=== PATIENT | female | born 2000 | race Caucasian/White ===

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

== ENCOUNTER 2022-02-14 14:54 | Outpatient (CLI) | payer OTHER, SELFPAY ==
--- NOTE | ~2022-02-14 | US_ITS ---
EXAMINATION: US OB /maternal detail DATE: 02/14/2022 16:00 INDICATION: of uncertain due to date or LMP TECHNIQUE: Real-time ultrasound of the pelvis was performed. COMPARISON: None. FINDINGS: There is a single living fetus in breech presentation. The placenta is posterior and 1.8 cm from the internal cervical os. The cervical length is 5.8 cm. heart rate is 144 beats per minute (bpm). cardiac activity and movement are noted. The amniotic fluid index is subjectively normal . The spine is incompletely evaluated. The following anatomy was identified as normal: 4 chamber heart 3 vessel cord cord insertion kidneys urinary bladder stomach diaphragm ventricles cisterna magna cerebellum The following biometric data were obtained: Biparietal diameter (BPD): 4.2 cm; head circumference (HC): 15.5 cm; abdominal circumference (AC): 14 .4 cm; femur length (FL): 3.0 cm. Estimated weight is 291 g +/- 43 g. As single measurements, these parameters are each equal to the following estimated gestational ages w ith ranges of +/- 2 standard deviations: BPD: 18 weeks 4 days +/- 1 weeks 5 days. HC: 18 weeks 3 days +/- 1 weeks 3 days. AC: 19 weeks 5 days +/- 2 weeks 0 days. FL: 19 weeks 3 days +/- 1 weeks 6 days. estimated gestational age based solely on measurements from this exam is 19 weeks 0 days +/- 1 weeks 2 days. IMPRESSION: 1. Single living fetus in breech presentation. 2. Estimated weight is 291 g +/- 43 g. 3. Estimated due date is 07/11/2019 based solely on measurements from this examination. 4. Low-lying placenta. Reviewed, dictated and finalized at location A. IMPRESSION: 1. Single living fetus in breech presentation. 2. Estimated weight is 291 g +/- 43 g. 3. Estimated due date is 07/11/2019 based solely on measurements from this exami nation. 4. Low-lying placenta.
== END 2022-02-14 14:55 | disposition home or self-care (01) ==
PROVIDERS: PCP Obstetrics & Gynecology; Visit Provider Obstetrics & Gynecology
DX: O44.42 Low lying placenta NOS or without hemorrhage, second trimester (principal); Z3A.19 19 weeks gestation of pregnancy
CPT/HCPCS: 76805

== ENCOUNTER 2022-04-18 12:48 | Outpatient (CLI) | payer MEDICAID, SELFPAY ==
--- NOTE | ~2022-04-18 | US_ITS ---
EXAMINATION: US OB follow up DATE: 04/18/2022 14:10 INDICATION: Low lying placenta. TECHNIQUE: Real-time ultrasound of the pelvis was performed. COMPARISON: Ultrasound 02/14/2022 FINDINGS: There is a single living fetus in vertex presentation. The placenta is posterior, 5.7 cm from the ce rvix. heart rate is 151 beats per minute (bpm). The visualized portions of the spine are normal. The four-chamber heart view is normal. The amniotic fluid volume is subjectively normal. The following biometric data were obtained: Biparietal diameter (BPD): 6.8 cm; head circumference (HC): 25.7 cm; abdominal circumference (AC): 24 .6 cm; femur length (FL): 5.3 cm. These measurements are concordant. Estimated weight is 1227 g +/- 184 g, which correlates with the 54th percentile when 07/11/22 is used as estimated date of delivery. As single measurements, these parameters are each equal to the following estimated gestational ages: BPD: 27 weeks 3 days. HC: 27 weeks 6 days. AC: 28 weeks 6 days. FL: 28 weeks 2 days. estimated gestational age based solely on measurements from this exam is 28 weeks 1 days +/- 2 weeks 0 days. IMPRESSION: 1. Single living fetus in vertex presentation. 2. Estimated weight is 1227 g +/- 184 g, which correlates with the 54th percentile when 3 is used as estimated date of delivery. 3. Normal placenta. Reviewed, dictated and finalized at location A. IMPRESSION: 1. Single living fetus in vertex presentation. 2. Estimated weight is 1227 g +/- 184 g, which correlates with the 54th percentile when 07/11/22 is used as estimated date of delivery. 3. Normal placenta.
== END 2022-04-18 12:49 | disposition home or self-care (01) ==
PROVIDERS: Visit Provider Obstetrics & Gynecology
DX: O44.42 Low lying placenta NOS or without hemorrhage, second trimester (principal); Z3A.28 28 weeks gestation of pregnancy
CPT/HCPCS: 76816

== ENCOUNTER 2022-08-10 18:06 | Emergency (ER) | payer OTHER, SELFPAY ==
[2022-08-10 18:10] VITALS: BP 122/68
[2022-08-10 18:14] VITALS: PULSE 82; RESP 14; TEMP 36.9; O2SAT 100
--- NOTE | 2022-08-10 18:24 | ED.LOWEXIN ---
HPI - Extremity Injury (Lower) General Chief Complaint: Extremity Injury, Lower Stated Complaint: right foot pain Time Seen by Provider: 08/10/22 18:24 History of Present Illness HPI Narrative: PATIENT PRESENTS WITH RIGHT LOWER LEG AND CALF PAIN FOR THE PAST FEW MONTHS. PATIENT STATES THE PAIN HAS GOTTEN WORSE OVER THE LAST FEW DAYS AND HAS INCREASED PAIN TO CALF WITH AMBULATION AND WEIGHT-BEARING. PATIENT ALSO REPORTS NUMBNESS AND TINGLING TO RIGHT LOWER FOOT PATIENT DENIES ANY INJURY BUT DID HAVE A NORMAL VAGINAL 1 MONTH AGO. Related Data Home Medications Medication Instructions Recorded Confirmed No Home Medications 08/10/22 08/10/22 Allergies Allergy/AdvReac Type Severity Reaction Status Date / Time No Known Allergies Allergy Verified 08/10/22 18:19 Review of Systems Review of Systems: CONSTITUTIONAL: Denies fever, chills, or sweats. EYES: Denies visual changes, redness, or discharge. ENT: Denies rhinorrhea, congestion, sore throat, or otalgia. CARDIOVASCULAR: Denies chest pain, palpitations, or edema. RESPIRATORY: Denies cough or dyspnea. GASTROINTESTINAL: Denies abdominal pain, nausea, vomiting, or diarrhea. GENITOURINARY: Denies dysuria or hematuria. SKIN: Denies rash or itching. MUSCULOSKELETAL: Denies back pain, joint pain, or myalgia. NEUROLOGIC: Denies headache, numbness, or weakness. PSYCHIATRIC: Denies anxiety or depression. PMFSH Comments At time of signature, agree with nursing past medical, surgical, social and family history. There is no relevant family history pertinent to the presenting complaint Exam Narrative: GENERAL: Well-appearing, well-nourished, and in no acute distress. HEAD: Normocephalic, atraumatic. EYES: PERRLA and EOMI. ENT: Nares clear, no rhinorrhea or epistaxis. Mucous membranes moist. NECK: Supple. CHEST: Clear to auscultation. No respiratory distress. HEART: Regular rate and rhythm. No murmur heard. Normal peripheral pulses. ABDOMEN: Soft, nontender, nondistended, normal active bowel sounds. EXTREMITIES: Normal range of motion. No edema.t cyanosis, clubbing or edema. Equal 2+ distal pulses and 2 second capillary refill noted. pain to right calf tender to touch pain worse with ambulation SKIN: Warm, dry, no rash. NEURO: No focal deficits. Alert and oriented x3. Collbran Coma Scale Eye Opening: Spontaneous 4 Collbran Coma Scale Motor: Obeys Commands 6 Hieu Coma Scale Verbal: Oriented 5 Collbran Coma Scale Total 15 Course Course Level of Care: Express Care Visit Vital Signs Vital signs: Vital Signs Temperature 36.9 C 08/10/22 18:14 Pulse Rate 82 08/10/22 18:14 Respiratory Rate 14 08/10/22 18:14 Pulse Oximetry 100 08/10/22 18:14 Oxygen Delivery Room Air 08/10/22 18:14 Temperature 36.9 C 08/10/22 18:14 Pulse Rate 82 08/10/22 18:14 Respiratory Rate 14 08/10/22 18:14 Pulse Oximetry 100 08/10/22 18:14 Oxygen Delivery Room Air 08/10/22 18:14 Transfer Transfered to: [facility] Transportation: Other (private vehicle) Accepting physician: BLAINEON Transfer comments: HIGHER LEVEL OF CARE MDM - Extremity Injury (Lower) Differential Diagnosis Differential diagnosis: Likely ankle sprain and strain, acute internal derangement of knee, fracture of femur, fracture of hip, puncture wound of foot, fracture of toe and ankle fracture Discharge Plan Discharge Clinical Impression: Contusion of foot, right, Pain of right calf Patient Disposition: Acute Care Hospital Condition: Stable Additional Instructions: GO DIRECTLY TO [facility] Prescriptions: No Action No Home Medications Follow-up/Referrals: Joseph Shea MD [Primary Care Provider] -
== END 2022-08-10 18:36 | disposition short-term general hospital (02) ==
PROVIDERS: Emergency Provider Nurse Practitioner Family; PCP Family Medicine
DX: O9A.23 Injury, poisoning and certain other consequences of external causes complicating the puerperium (principal); S90.31XA Contusion of right foot, initial encounter; X58.XXXA Exposure to other specified factors, initial encounter; O90.89 Other complications of the puerperium, not elsewhere classified; M79.661 Pain in right lower leg
CPT/HCPCS: 99212; G0463

== ENCOUNTER 2022-08-25 09:07 | Emergency (ER) | payer OTHER, SELFPAY ==
[2022-08-25 09:26] VITALS: BP 121/69; PULSE 82; RESP 20; TEMP 36.7; O2SAT 99
--- NOTE | 2022-09-10 14:27 | ED.GENADULT ---
HPI - General Adult General Chief complaint: Upper Respiratory Infection Stated complaint: feels like something is stuck in throat Source: patient Mode of arrival: ambulatory Limitations: no limitations History of Present Illness HPI narrative: Patient presents for evaluation of which she states his some discomfort in her throat. This typically occurs after eating but not while swallowing. She initially informed me that she had some chest pain but later clarified it was a burning sensation in her throat. No difficulty breathing or swallowing. She does not follow the healthiest diet. No nausea, vomiting, diarrhea. She has not taken any medications for her symptoms. No additional complaints or concerns. Related Data Allergies Allergy/AdvReac Type Severity Reaction Status Date / Time No Known Allergies Allergy Verified 08/25/22 09:22 Review of Systems Review of Systems: CONSTITUTIONAL: Denies fever, chills, or sweats. EYES: Denies visual changes, redness, or discharge. ENT: Reports burning sensation in the back of her throat. Denies rhinorrhea, congestion, sore throat, or otalgia CARDIOVASCULAR: Denies chest pain, palpitations, or edema. RESPIRATORY: Denies cough or dyspnea. GASTROINTESTINAL: Denies abdominal pain, nausea, vomiting, or diarrhea. GENITOURINARY: Denies dysuria or hematuria. SKIN: Denies rash or itching. MUSCULOSKELETAL: Denies back pain, joint pain, or myalgia. NEUROLOGIC: Denies headache, numbness, dizziness, or weakness. PSYCHIATRIC: Denies anxiety or depression. PMFSH Past Medical History Medical History No pertinent past medical history Surgical History Surgical History No pertinent past surgical history Family History Family History Mother Family history non-contributory Social History Social History Substance use: never Gender identity (if verbalized by the patient): Female Spiritual care concerns: No Exam Narrative: GENERAL: Well-appearing, well-nourished, and in no acute distress. HEAD: Normocephalic, atraumatic. EYES: PERRLA and EOMI. ENT: Nares clear, no rhinorrhea or epistaxis. Mucous membranes moist. Oropharynx without tonsillar hypertrophy exudate or other lesions. Bilateral TMs pearly jack nonbulging NECK: Supple. No adenopathy or masses. No carotid bruits or JVD CHEST: Clear to auscultation. No respiratory distress. No wheezes rales or rhonchi HEART: Regular rate and rhythm. No murmur heard. Normal peripheral pulses. ABDOMEN: Soft, nontender, nondistended, normal active bowel sounds. EXTREMITIES: Normal range of motion. No edema. SKIN: Warm, dry, no rash. NEURO: No focal deficits. Alert and oriented x3. PSYCH: Normal mood and affect. Course Course Emergency Course: This is a 22-year-old female who presented for evaluation of burning sensation throat after eating. Rapid strep was negative. Exam is consistent with GERD. Will dc with pepcid. Follow up with primary provider. Go to the ER for chest pain or worsening symptoms. Patient in agreement with plan care. Level of Care: Express Care Visit Vital Signs Vital signs: Vital Signs Temperature 36.7 C 08/25/22 09:26 Pulse Rate 82 08/25/22 09:26 Respiratory Rate 20 08/25/22 09:26 Blood Pressure 121/69 08/25/22 09:26 Pulse Oximetry 99 08/25/22 09:26 Oxygen Delivery Room Air 08/25/22 09:26 Temperature 36.7 C 08/25/22 09:26 Pulse Rate 82 08/25/22 09:26 Respiratory Rate 20 08/25/22 09:26 Blood Pressure 121/69 08/25/22 09:26 Pulse Oximetry 99 08/25/22 09:26 Oxygen Delivery Room Air 08/25/22 09:26 Medical Decision Making Vital Signs Vital Signs: Vital Signs Temperature 36.7 C 08/25/22 09:26 Pulse Rate 82 08/25/22 09:2
== END 2022-08-25 10:30 | disposition home or self-care (01) ==
PROVIDERS: Emergency Provider Nurse Practitioner
DX: K21.9 Gastro-esophageal reflux disease without esophagitis (principal)
CPT/HCPCS: 87081; 87880; 99213; G0463

== ENCOUNTER 2022-10-12 12:57 | Emergency (ER) | payer OTHER, SELFPAY ==
[2022-10-12 13:01] VITALS: BP 136/62; PULSE 61; RESP 20; TEMP 36.4; O2SAT 100
--- NOTE | 2022-10-12 13:25 | ED.FEMALEGU ---
HPI - Female Genitourinary General Chief complaint: Urogenital-Female Stated complaint: Urinary Problem Time Seen by Provider: 10/12/22 13:25 History of Present Illness HPI Narrative: PATIENT PRESENTS WITH BURNING WITH URINATION. PATIENT DENIES ANY FLANK PAIN NO GROSS HEMATURIA NO VAGINAL PLAYING NO VAGINAL DISCHARGE NO PELVIC PAIN. PATIENT STATES SHE WOULD LIKE TO BE TESTED FOR STDS AT THIS TIME WELL TESTED FOR UTI. Related Data Home Medications Medication Instructions Recorded Confirmed norethindrone 1 mg-ethinyl 1 tablet PO DAILY 10/12/22 10/12/22 estradiol 20 mcg (24)-iron 75 mg (4) tablet (Crissy 24 Fe) Allergies Allergy/AdvReac Type Severity Reaction Status Date / Time No Known Allergies Allergy Verified 10/12/22 13:24 Review of Systems Review of Systems: CONSTITUTIONAL: DENIES FEVER, CHILLS, OR SWEATS. EYES: DENIES VISUAL CHANGES, REDNESS, OR DISCHARGE. ENT: DENIES RHINORRHEA, CONGESTION, SORE THROAT, OR OTALGIA. CARDIOVASCULAR: DENIES CHEST PAIN, PALPITATIONS, OR EDEMA. RESPIRATORY: DENIES COUGH OR DYSPNEA. GASTROINTESTINAL: DENIES ABDOMINAL PAIN, NAUSEA, VOMITING, OR DIARRHEA. GENITOURINARY: DENIES DYSURIA OR HEMATURIA. SKIN: DENIES RASH OR ITCHING. MUSCULOSKELETAL: DENIES BACK PAIN, JOINT PAIN, OR MYALGIA. NEUROLOGIC: DENIES HEADACHE, NUMBNESS, OR WEAKNESS. PSYCHIATRIC: DENIES ANXIETY OR DEPRESSION. [facility] Past Medical History Medical History No pertinent past medical history Surgical History Surgical History No pertinent past surgical history Family History Family History Mother Family history non-contributory Social History Social History Substance use: never Gender identity (if verbalized by the patient): Female Spiritual care concerns: No Comments AT TIME OF SIGNATURE, AGREE WITH NURSING PAST MEDICAL, SURGICAL, SOCIAL AND FAMILY HISTORY. THERE IS NO RELEVANT FAMILY HISTORY PERTINENT TO THE PRESENTING COMPLAINT Exam Narrative: GENERAL: WELL-APPEARING, WELL-NOURISHED, AND IN NO ACUTE DISTRESS. HEAD: NORMOCEPHALIC, ATRAUMATIC. EYES: PERRLA AND EOMI. ENT: NARES CLEAR, NO RHINORRHEA OR EPISTAXIS. MUCOUS MEMBRANES MOIST. NECK: SUPPLE. CHEST: CLEAR TO AUSCULTATION. NO RESPIRATORY DISTRESS. HEART: REGULAR RATE AND RHYTHM. NO MURMUR HEARD. NORMAL PERIPHERAL PULSES. ABDOMEN: SOFT, NONTENDER, NONDISTENDED, NORMAL ACTIVE BOWEL SOUNDS. NO FLANK PAIN EXTREMITIES: NORMAL RANGE OF MOTION. NO EDEMA. SKIN: WARM, DRY, NO RASH. NEURO: NO FOCAL DEFICITS. ALERT AND ORIENTED X3. VELMA COMA SCALE EYE OPENING: SPONTANEOUS 4 VELMA COMA SCALE MOTOR: OBEYS COMMANDS 6 VELMA COMA SCALE VERBAL: ORIENTED 5 VELMA COMA SCALE TOTAL 15 Course Course Level of Care: Express Care Visit Vital Signs Vital signs: Vital Signs Temperature 36.4 C 10/12/22 13:01 Pulse Rate 61 10/12/22 13:01 Respiratory Rate 20 10/12/22 13:01 Blood Pressure 136/62 10/12/22 13:01 Pulse Oximetry 100 10/12/22 13:01 Oxygen Delivery Room Air 10/12/22 13:01 Temperature 36.4 C 10/12/22 13:01 Pulse Rate 61 10/12/22 13:01 Respiratory Rate 20 10/12/22 13:01 Blood Pressure 136/62 10/12/22 13:01 Pulse Oximetry 100 10/12/22 13:01 Oxygen Delivery Room Air 10/12/22 13:01 MDM - Female Genitourinary Lab Data Labs: Lab Results 10/12/22 10/12/22 Range/Units 13:14 13:14 C.trachomatis RNA (TMA) Pending N.gonorrhoeae RNA (TMA) Pending T. vaginalis Amp RNA Pending Urine Glucose Negative Reference Range: Negative Urine Bilirubin Negative Reference Range: Negative Urine Ketone
== END 2022-10-12 13:30 | disposition home or self-care (01) ==
PROVIDERS: Emergency Provider Nurse Practitioner Family
DX: R30.0 Dysuria (principal); A64 Unspecified sexually transmitted disease
CPT/HCPCS: 81003; 87086; 87088; 87491; 87591; 87661; 99213; G0463

== ENCOUNTER 2024-05-20 16:31 | Emergency (ER) | payer OTHER, SELFPAY ==
--- NOTE | ~2024-05-20 | XR_ITS ---
CHEST RADIOGRAPH, PA AND LATERAL CLINICAL HISTORY: cough, fever, sob x6 days . COMPARISON: None available TECHNIQUE: PA and lateral views of the chest. FINDINGS The cardiomediastinal silhouette is unremarkable. Increased interstitial markings with air bronchograms are identified within the anterior inferior seg ment of the left upper lobe for which an early infiltrate is suspected. The remainder of the lungs are clear. Visualized osseous structures and soft tissues are unremarkable. IMPRESSION: Left upper lobe infiltrate, as detailed above Reviewed, dictated and finalized at location A. LUBRICATOR
[2024-05-20 16:55] VITALS: BP 141/70; PULSE 102; RESP 22; TEMP 37.8; O2SAT 100
--- NOTE | 2024-05-20 18:10 | ED_ITS ---
HPI - URI/Sore Throat General Chief Complaint: Upper Respiratory Infection Stated Complaint: cough/chest tight/sob Time Seen by Provider: 05/20/24 18:03 Source: patient and RN notes reviewed Mode of arrival: ambulatory Limitations: no limitations History of Present Illness HPI Narrative: Patient presents today complaining of a 6 day history of cough with chills, intermittent shortness of breath. States she had a fever up to 102 for 3 days at onset of symptoms, but none since then. Currently rates her chest discomfort 02/06 and has been taking cold and cough medicine without much relief. No history of asthma. Patient vapes Related Data Home Medications Medication Instructions Recorded Confirmed etonogestrel 0.12 mg-ethinyl 1 vag ring vaginal 05/20/24 estradiol 0.015 mg/24 hr vaginal ring (Subha) Allergies Allergy/AdvReac Type Severity Reaction Status Date / Time No Known Allergies Allergy Verified 05/20/24 17:26 Review of Systems Review of Systems: CONSTITUTIONAL: Denies body aches, fever, chills, or sweats.+ fever, chills EYES: Denies visual changes, redness, or discharge. ENT: Denies rhinorrhea, congestion, sore throat, or otalgia. CARDIOVASCULAR: Denies chest pain, palpitations, or edema. RESPIRATORY: + cough, shortness of breath, chest discomfort. GASTROINTESTINAL: Denies abdominal pain, nausea, vomiting, or diarrhea. GENITOURINARY: Denies dysuria or hematuria. SKIN: Denies rash, itching, or wounds. MUSCULOSKELETAL: Denies back pain, joint pain, or myalgia. NEUROLOGIC: Denies headache, numbness, tingling, or weakness. PSYCH: Denies depression or anxiety. [facility], [facility] Past Medical History Medical History No pertinent past medical history Surgical History Surgical History No pertinent past surgical history Family History Family History Mother Family history non-contributory Social History Social History Substance use: never Gender identity (if verbalized by the patient): Female Spiritual care concerns: No Comments At time of signature, I have reviewed and agree with nursing past medical, surgical, social and family history unless otherwise noted. Please see nursing chart for further information. There is no relevant family history pertinent to the presenting complaint Exam Narrative: GENERAL: Ill-appearing, well-nourished, and in no acute distress. HEAD: Normocephalic, atraumatic. EYES: EOMI. No redness or drainage. Conjunctivae normal. ENT: Mucous membranes pink and moist. Nares clear. No rhinorrhea. TMs normal bilaterally. Throat normal. Uvula midline. NECK: Normal AROM. Supple. No lymphadenopathy. CHEST: No respiratory distress. Clear to auscultation. Mild tachypnea HEART: Regular rate and rhythm. No murmur appreciated. Normal peripheral pulses. EXTREMITIES: Normal range of motion. No edema. SKIN: Warm, dry, no rash. Capillary refill normal. Normal skin turgor. NEURO: No focal deficits. Alert and oriented x3. Gait steady. PSYCH: Normal affect. No signs of depression or anxiety. Course Course Level of Care: Express Care Visit Vital Signs Vital signs: Vital Signs Temperature 100.0 F H 05/20/24 16:55 Pulse Rate 102 H 05/20/24 16:55 Respiratory Rate 22 H 05/20/24 16:55 Blood Pressure 141/70 H 05/20/24 16:55 Pulse Oximetry 100 05/20/24 16:55 Oxygen Delivery Room Air 05/20/24 16:55 Temperature 100.0 F H 05/20/24 16:55 Pulse Rate 102 H 05/20/24 16:55 Respiratory Rate 22 H 05/20/24 16:55 Blood Pressure 141/70 H 05/20/24 16:55 Pulse Oximetry 100 05/20/24 16:55 Oxygen Delivery Room Air 05/20/24 16:55 Reviewed MDM - URI/Sore Throat MDM Narrative Medical decision making narrative: Chest x-ray shows left upper lobe infiltrate. Patient will be treated with Augmentin and azithromycin. Prescriptions for prednisone, amoxicillin, and benzonatate also sent to pharmacy. Anticipatory guidance given. ED precautions given. Differential Diagnosis Differential diagnosis: Likely upper respiratory infection, viral infection, bronchitis and other (Pneumonia) Imaging Data Radiologist's impression: ITS Impressions Chest X-Ray 05/20/24 18:38 IMPRESSION: Left upper lobe infiltrate, as detailed above Critical Care Time Critical Care Time Critical Care Time: No Discharge Plan Discharge Clinical Impression: Pneumonia Qualifiers: Pneumonia type: due to unspecified organism Laterality: left Lung location: upper lobe of lung Qualified Code(s): J18.9 - Pneumonia, unspecified organism Patient Disposition: Home, Self-Care Condition: Stable Instructions: Antibiotic Form, Community Acquired Pneumonia (DC) Additional Instructions: You have been diagnosed with left upper lobe pneumonia. Please take all medications as prescribed. If symptoms worsen, please go to the ER for further evaluation and treatment. Your blood pressure was elevated above 120/80 today at Urgent Care. This puts you above the threshold for follow up. Please schedule a followup visit with your personal physician as soon as possible, for further evaluation and treatment. Even blood pressure exceeding 120/80 may indicate pre-hypertension. Prescriptions: New azithromycin 250 mg tablet 250 mg PO DAILY Qty: 6 0RF Rx Instructions: take 500 mg today (day 1), then 250 mg daily on days 2-5. benzonatate 200 mg capsule 200 mg PO TID PRN (Reason: cough) Qty: 20 0RF amoxicillin-pot clavulanate 875-125 mg tablet 1 tablet PO Q12H 5 Days Qty: 10 0RF prednisone 50 mg tablet 50 mg PO DAILY 5 Days Qty: 5 0RF albuterol sulfate 90 mcg/actuation HFA aerosol inhaler 2 inh inhalation Q4-6H PRN (Reason: shortness of breath or wheezing) Qty: 8.5 0RF No Action etonogestrel-ethinyl estradiol [EluRyng] 0.12-0.015 mg/24 hr ring 1 vag ring VAGINAL Follow-up/Referrals: PHYSICIAN,PUBLIC RELATIONS COORDINATOR [Primary Care Provider] - Time of Disposition: 18:49
== END 2024-05-20 18:50 | disposition home or self-care (01) ==
PROVIDERS: Emergency Provider Nurse Practitioner
DX: J18.9 Pneumonia, unspecified organism (principal)
CPT/HCPCS: 71046; 99213; G0463

== ENCOUNTER 2024-07-07 09:38 | Emergency (ER) | payer SELFPAY ==
[2024-07-07 09:50] VITALS: BP 135/80; PULSE 86; RESP 16; TEMP 37.1; O2SAT 100
--- NOTE | 2024-07-07 10:01 | ED_ITS ---
HPI - Skin/Abscess/Foreign Bdy General Chief complaint: Skin/Abscess/Foreign Body Stated complaint: Skin Sore Time Seen by Provider: 07/07/24 10:01 Source: patient Mode of arrival: ambulatory Limitations: no limitations History of Present Illness HPI narrative: [age] year old female presented for complaint of a sore inside the nose for about 2 weeks. Endorses yellow drainage and crust to the site. Also re ports it is spreading to areas around the mouth. States she has kids who have had similar symptoms recently. Reports itching, burning and draining. Denies pain. Denies lip, tongue, or throat swelling, shortness of breath or wheezing. Denies changes to soap, detergent, lotion, or any other exposures. Applying an unknown cream to the site. Related Data Allergies Allergy/AdvReac Type Severity Reaction Status Date / Time No Known Allergies Allergy Verified 07/07/24 10:05 Review of Systems Review of Systems: CONSTITUTIONAL: Denies body aches, fever, chills, or sweats. EYES: Denies visual changes, redness, or discharge. ENT: Denies rhinorrhea, congestion CARDIOVASCULAR: Denies chest pain, palpitations, or edema. RESPIRATORY: Denies cough or dyspnea. GASTROINTESTINAL: Denies abdominal pain, nausea, vomiting, or diarrhea. SKIN: per HPI MUSCULOSKELETAL: Denies back pain, joint pain, or myalgia. NEUROLOGIC: Denies headache, numbness, tingling, or weakness. [facility] Past Medical History Medical History No pertinent past medical history Surgical History Surgical History No pertinent past surgical history Family History Family History Mother Family history non-contributory Social History Social History Substance use: never Gender identity (if verbalized by the patient): Female Spiritual care concerns: No Comments At time of signature, I have reviewed and agree with nursing past medical, surgical, social and family history unless otherwise noted. Please see nursing chart for further information. There is no relevant family history pertinent to the presenting complaint Exam Narrative: GENERAL: Well-appearing HEAD: Normocephalic, atraumatic. EYES: conjunctivae clear, and EOMI. ENT: Mucous membranes moist. left nare with yellow drainage and honey colored crust, scattered scabbed areas around mouth with honey colored crust c/w impetigo. Appears mild. Oropharynx without edema, erythema or lesions. NECK: Supple. No lymphadenopathy CHEST: Clear to auscultation. HEART: Regular rate and rhythm. NEURO: Alert and oriented x3. Course Course Emergency Course: Patient is aware of diagnosis, understands and agrees to treatment plan. Antic ipatory guidance given. Patient agrees to follow-up as directed and is aware of reasons to seek care at the emergency department. Portions of this record may have been created with voice recognition software Level of Care: Express Care Visit Vital Signs Vital signs: Vital Signs Temperature 98.7 F 07/07/24 09:50 Pulse Rate 86 07/07/24 09:50 Respiratory Rate 16 07/07/24 09:50 Blood Pressure 135/80 07/07/24 09:50 Pulse Oximetry 100 07/07/24 09:50 Oxygen Delivery Room Air 07/07/24 09:50 Temperature 98.7 F 07/07/24 09:50 Pulse Rate 86 07/07/24 09:50 Respiratory Rate 16 07/07/24 09:50 Blood Pressure 135/80 07/07/24 09:50 Pulse Oximetry 100 07/07/24 09:50 Oxygen Delivery Room Air 07/07/24 09:50 Reviewed MDM - Skin/Abscess/Foreign Bdy MDM Narrative Medical decision making narrative: Discussed physical exam findings. Advised supportive measures and signs/symptoms to go to the ER. Pt is appropriate for outpt treatment and f/u. Instructed patient to go to nearest ER immediately for any worsening symptoms including but not limited to: fever, spreading rash, pain, sore throat, headache, dizziness, chest pain, trouble breathing, or any symptoms concerning to the patient. Differential Diagnosis Differential diagnosis: Likely abscess of skin or subcutaneous tissue, viral exanthem, dermatophytosis, urticaria, herpes zoster, cellulitis, eczema, insect bites, impetigo and contact dermatitis Discharge Plan Discharge Clinical Impression: Impetigo Patient Disposition: Home, Self-Care Condition: Stable Instructions: Antibiotic Form, Impetigo (ED) Additional Instructions: Keep the area clean and dry - cleanse with warm water and mild soap and allow to fully dry. You are contagious for 24 hours after beginning the antibiotic. Draining lesions should be kept covered. Watch for worsening symptoms including pain, redness, swelling, streaking, pus/drainage, fever. Go to the ER with any of these symptoms or concerns. Follow up with primary care provider in 1-2 weeks as needed. Patient Language: Slovenian Prescriptions: New cephalexin 500 mg capsule 500 mg PO Q6H 7 Days Qty: 28 0RF mupirocin 2 % ointment 1 applic topical BID 14 Days Qty: 22 0RF Follow-up/Referrals: PHYSICIAN,PROPULSION MOTOR AND GENERATOR REPAIRER [Primary Care Provider] - Time of Disposition: 10:08
== END 2024-07-07 10:10 | disposition home or self-care (01) ==
PROVIDERS: Emergency Provider Nurse Practitioner Family
DX: L01.00 Impetigo, unspecified (principal)
CPT/HCPCS: 99213; G0463

== ENCOUNTER 2025-04-09 12:22 | Emergency (ER) | payer MEDICAID, SELFPAY ==
--- NOTE | ~2025-04-09 | XR_ITS ---
Abdominal radiograph(s) INDICATION: Generalized abdominal pain, nausea COMPARISON: None TECHNIQUE: 2 views supine AP abdomen FINDINGS: Scattered colonic gas and stool. Small bowel loops not well seen. No evidence of organomegaly. No abnormal abdominal calcifications. No acute bony abnormality. IMPRESSION: 1. No acute findings. Reviewed, dictated and finalized at location R. IMPRESSION: 1. No acute findings.
--- NOTE | 2025-04-09 12:23 | ED.FEMALEGU ---
HPI - Female Genitourinary General Chief complaint: Urogenital-Female Stated complaint: Urinary Problem Time Seen by Provider: 04/09/25 12:22 Source: patient Mode of arrival: ambulatory Limitations: no limitations History of Present Illness HPI Narrative: Kary is a 25-year-old female patient presenting to the clinic today with complaints of a possible kidney infection x1 week. She reports she is having nausea, abdominal pain, back pain, and body aches for the past week. Rates pain 8/10 currently. Has had some nasal congestion as well. No fevers or chills. Last menstrual period was 1 week ago and had 3 days of light menses. Started heavy vaginal bleeding again this morning. Has went through 1 Alethea pads per hour. No UTI symptoms. Last BM was yesterday and normal for the patient. Recently tested positive for Trichomonas 3 weeks ago and was given Flagyl. Related Data Home Medications ?Medication ?Instructions ?Recorded ?Confirmed ?Last Taken ?Type No Home Medications 04/09/25 04/09/25 Unknown History Allergies Allergy/AdvReac Type Severity Reaction Status Date / Time No Known Allergies Allergy Verified 04/09/25 12:32 Review of Systems Review of Systems: Pertinent positives per HPI. Patient denies any fever, chills, rash, headache, visual changes, dizziness, cough, runny nose, sore throat, shortness of breath, chest pain, palpitations, nausea, vomiting, diarrhea, constipation, or any urinary issues. [facility] Past Medical History Medical History No pertinent past medical history Surgical History Surgical History No pertinent past surgical history Family History Family History Mother Family history non-contributory Social History Social History Substance use: never Gender identity (if verbalized by the patient): Female Spiritual care concerns: No Comments At the time of my signature, I reviewed and agree with the nursing past medical, surgical, social, and family history. There is no relevant family history pertinent to the patient complaint. Exam Narrative: General: Well-developed, obese, in no apparent distress. Head: Normocephalic, atraumatic. Cardio: Regular rate and rhythm, s1 and s2 normal, no murmur appreciated. Resp: Clear to auscultation bilaterally, no rhonchi, rales, wheezing or rubs. Abdomen: Soft, pliable, bowel sounds present in all quadrants, generalized abdominal tender to palpation, no organomegly, bilateral CVAT tenderness. Course Course Emergency Course: Portions of this record may have been created with voice recognition software. Level of Care: Express Care Visit Vital Signs Vital signs: Vital Signs Temperature 36.3 C L 04/09/25 12:31 Pulse Rate 78 04/09/25 12:31 Respiratory Rate 14 04/09/25 12:31 Blood Pressure 140/61 04/09/25 12:31 Pulse Oximetry 100 04/09/25 12:31 Oxygen Delivery Room Air 04/09/25 12:31 Temperature 36.3 C L 04/09/25 12:31 Pulse Rate 78 04/09/25 12:31 Respiratory Rate 14 04/09/25 12:31 Blood Pressure 140/61 04/09/25 12:31 Pulse Oximetry 100 04/09/25 12:31 Oxygen Delivery Room Air 04/09/25 12:31 Vital signs reviewed Transfer Transfered to: [facility] Transportation: Other (Private car) Transfer rationale: Abdomen pain/flank pain/heavy vaginal bleeding- higher level of care Accepting physician: Dr. Morrow Transfer comments: Private car MDM - Female Genitourinary MDM Narrative Medical decision making narrative: At the time of visit patient is resting comfortably on the exam table. Patient appears to be nontoxic. Complaints of a possible kidney infection x1 week. She reports she is having nausea, abdominal pain, back pain, and body aches for the past week. Rates pain 8/10 currently. Has had some nasal congestion as well. No fevers or chills. Last menstrual period was 1 week ago and had 3 days of light menses. Started heavy vaginal bleeding again this morning. Has went through 1 Alethea pads per hour. No UTI symptoms. Last BM was yesterday and normal for the patient. Recently tested positive for Trichomonas 3 weeks ago and was given Flagyl. On exam patient has soft pliable abdomen, generalized abdominal tenderness to palpation, bilateral CVAT tenderness, no organomegaly. Urinalysis, bedside , and KUB x-ray were ordered. Labs: Urinalysis shows 3+ blood and protein in her urine, bedside test was negative Diagnostics: KUB x-ray shows no acute abdomen pathology. Plan: Patient is radiating pain 8/10-generalized abdominal pain, bilateral flank pain, and heavy vaginal bleeding. Recommend transfer to the ER for further evaluation. Patient agrees to transfer and would like to go to [facility]. Report was called to Dr. Morrow for continuity of care and she accepts patient for transfer. Patient to be transferred via private car. Differential Diagnosis Differential diagnosis: Likely urinary tract infection, cystitis and other (Pyelonephritis) Lab Data Labs: Lab Results 04/09/25 Range/Units 13:16 POC Urine Color Tea colored POC Urine Clarity Cloudy POC Urine pH 7.0 POC Ur Specif Lulu 1.020 POC Urine Protein 1+ (Negative) POC Ur Glucose (UA) Negative (Negative) POC Urine Ketones Negative (Negative) POC Urine Blood 3+ (Negative) POC Urine Nitrite Negative (Negative) POC Urine Bilirubin Negative (Negative) POC Urine Urobilinogen 1.0 POC U Leukocyte Esteras Negative (Negative) POC Urine HCG, Qual Negative (Negative) Imaging Data Radiologist's impression: ITS Impressions Abdomen X-Ray 04/09/25 13:30 IMPRESSION: 1. No acute findings. Discharge Plan Discharge Clinical Impression: Acute flank pain, Vaginal bleeding Abdominal pain Qualifiers: Abdominal location: generalized Qualified Code(s): R10.84 - Generalized abdominal pain Patient Disposition: Acute Care Hospital Condition: Stable Instructions: Antibiotic Form Patient Language: Honduran Prescriptions: No Action No Home Medications Follow-up/Referrals: UNKNOWN,DOCTOR [Non-Staff] Time of Disposition: 13:44 Quality NIHSS Nursing Documentation ED NIHSS nursing documentation: reviewed/agree
--- OUTSIDE RECORDS SUMMARY | 2025-04-09 12:24 | XMS_ITS | Clinical Summary ---
Author Organization [facility] Address [address] [place] [address] Care Team Providers Care Medical Logistics Specialist Name Role Phone No, Physician Primary Care Provider [phone] Allergies No known active allergies Medications PNV #[id number] acid-dha 35 mg iron-5 mg iron-1 mg capsule Take 1 tablet by mouth daily Active benzocaine-ment hoL (DERMOPLAST) 20-0.5 % aerosolIndicati ons:Minor Skin Wound Pain Apply 1 application (1 spray total) topically as needed for other (perianal area for pain) 1 g 1 3 Active ibuprofen (ADVIL,MOTRIN) 600 mg tabletIndicatio ns:Cramps Take 1 tablet (600 mg total) by mouth every 6 (six) hours as needed for pain 30 tablet 1 3 Active Active Problems Problem Noted Date Diagnosed Date Term 07/04/2022 Supervision of normal 07/19/2021 Insect bite of left index finger 12/27/2019 Urinary tract infection in female 12/27/2019 Immunizations Immunization Administration Dates Next Due MMR 07/20/2021(Deferred: No longer needed),05/24/2020(Deferred: Other - rubella immune) Medical History Medical History Date Comments Mental disorder depression; took s meds for a week but stopped beginning of 2018 Urinary tract infection last too k something a month ago Post concussion syndrome No tast e or small since this time. Social History Tobacco Use Types Packs/Day Years Used Date Smoking Tobacco: Former Cigarettes 0.2 1 0 10/2018 - 10/2019 Smokeless Tobacco: Current Tobacco Cessation:Ready to Q uit: Yes; Counseling Given: Yes Alcohol Use Standard Drinks/Week Comments Never 0 (1 standard drink = 0.6 oz pur e alcohol) Social Connection and Isolation Panel Answer Date Recorded In a typical week, how many times do you talk on the phone with family, friends, or neighbors? More than three times a week 07/04/2022 How often do you get togethe r with friends or relatives? More than three times a week 07/04/2022 How often do you attend chur ch or hinduism services? Never 07/04/2022 Do you belong to any clubs o r organizations such as congregation groups, unions, fraternal or athletic groups, or school groups? No 07/04/2022 How often do you attend meet ings of the clubs or organizations you belong to? Never 07/04/2022 Are you , , di vorced, , never , or living with a partner? Living with partner 07/04/2022 AUDIT-C Answer Date Recorded Q1: How often do you have a drink containing alcohol? Never 07/04/2022 Q2: How many drinks containi ng alcohol do you have on a typical day when you are drinking? Patient does not drink Q3: How often do you have si x or more drinks on one occasion? Never 07/04/2022 Overall Financial Resource Strain (CARDIA) Answe r Date Recorded How hard is it for you to pa y for the very basics like food, housing, medical care, and heating? Not hard at all 07/04/2022 PHQ-2 Answer Date Recorded PHQ-2 Total Score (If total score is 3 or more points, staff should administer the PHQ-9) 0 07/04/2022 [facility]ational Stress Questionnaire Answer Date Recorded Do you feel stress - tense, restless, nervous, or anxious, or unable to sleep at night because your mind is troubled all the time - these days? Not at all 07/04/2022 Exercise Vital Sign Answer Date Recorde d On average, how many days pe r week do you engage in moderate to strenuous exercise (like a brisk walk)? 1 day 07/04/2022 On average, how many minutes do you engage in exercise at this level? 10 min 07/04/2022 Hunger Vital Sign Answer Date Recorded Within the past 12 months, y ou worried that your food would run out before you got the money to buy more. Never true 07/04/19 Within the past 12 months, t he food you bought just didn't last and you didn't have money to get more. Never true 07/04/2022 PRAPARE - Transportation Answer Date Re corded In the past 12 months, has l ack of transportation kept you from medical appointments or from getting medications? No 10/2022 In the past 12 months, has l ack of transportation kept you from meetings, work, or from getting things needed for daily living? No 07/04/2022 Housing Stability Vital Sign Answer Nain e Recorded In the last 12 months, was t here a time when you were not able to pay the mortgage or rent on time? No 07/04/2022 In the last 12 months, how many places have you lived? 1 07/04/2022 In the last 12 months, was t here a time when you did not have a steady place to sleep or slept in a longterm (including now)? No 07/04/2022 Personal Safety Answer Date Recorded Getting School Help Needed Not on file 09/01 Comments No Sex and Gender Information Value Date Recorded Sex Assigned at Not on file Legal Sex Female 7:44 PM FOLLOW UP REP Gender Identity Not on file Sexual Orientation Not on file Obstetrics History Para Term AB IAB SAB Ectopic Multiple Livin g Live Births 3 3 3 0 3 3 Date Outcome GA Total Labor Labor/2nd/3rd Weight Sex Type Anes PTL Jennifer A1 A5 Name Clin 2019 Term 40w 2d 4h 12m 2h 50m/1h 11m/0h 11m 3.113 kg (6 lb 13.8 oz) M Vag-S pont Epidur al N Livin g 9 9 [facility] ,BOYS Zakiya Tamayo MD Complications:None Delivery Location:[facility]) 2021 Term 39w 4d 1h 10m 0h 43m/0h 20m/0h 07m 2.88 kg (6 lb 5.6 oz) F Vag-S pont Epidur al N Livin g 9 9 [facility] ,GIRL YAYO Zakiya Watson MD Complications:Precipitous La bor (<3 hours) Delivery Location:[facility]) 2022 Term 39w 0d 1h 57m 1h 45m/0h 07m/0h 05m 3.607 kg (7 lb 15.2 oz) F Epidur al N Livin g 9 9 [facility] ,GIRL YAYO Zakiya Watson MD Complications:Precipitous La bor (<3 hours) Delivery Location[facility]) Last Filed Vital Signs Vital Sign Reading Time Taken Comments Blood Pressure 142/89 08/11/2022 3:10 AM FOLLOW UP REP Pulse 72 08/11/2022 3:10 AM FOLLOW UP REP Temperature 36.8 C (98.2 F) 08/11/2022 3:10 AM FOLLOW UP REP Respiratory Rate 18 08/10/2022 7:11 PM FOLLOW UP REP Oxygen Saturation 98% 08/11/2022 3:10 AM FOLLOW UP REP Inhaled Oxygen Concentration - - Weight 94.3 kg (208 lb) 08/10/2022 7:11 PM FOLLOW UP REP Height 165.1 cm (5' 5) 08/10/2022 7:11 PM FOLLOW UP REP Body Mass Index 34.61 08/10/2022 7:11 PM FOLLOW UP REP Plan of Treatment Health Maintenance Due Date Last Done Comments Cervical Cancer Screening 2002 Chlamydia and Gonorrhea (GC/ CT) Screening 2002 Hepatitis C Screening 2002 Regular Well Visit/Exam 18-64 01/18/2020 DTaP/Tdap/Td Vaccine (7 - Td or Tdap) 04/06/2022 04/06/2012, 02/05/2006, 04/26/2003, Additional history exists Depression Screening 07/01/2023 07/01/2022, 07/01/2022, 07/01/2022, Additional history exists Influenza Vaccine (#1) 2025 4, 04/15/2013, 04/06/2012, Additional history exists Hepatitis B Screening Completed 2002 , 2002, 2002 Pneumococcal vaccine <65 Completed 003, 2002, 2002 Varicella Vaccines Completed 02/06/2007, 04/26/2003 HPV Vaccines Completed 08/26/2013, 03/01, 01/21/2013 Meningococcal B Vaccine Completed 09/23/2018, 08/24 Insurance [facility] Advance Directives For more information, please contact: [phone] * Full Code (Latest Code Status on File) Date Activated Date Inactivated Comments 07/04/2022 1:38 PM 07/05/2022 10:21 PM * Full Code Date Activated Date Inactivated Comments 07/04/2022 7:19 AM 07/04/2022 1:38 PM Full CPR in ca se of cardiopulmonary arrest * Full Code Date Activated Date Inactivated Comments 07/19/2021 4:08 PM 07/21/2021 12:03 AM * Full Code Date Activated Date Inactivated Comments 07/19/2021 6:53 AM 07/19/2021 4:08 PM Full CPR in case of cardiopulmonary arrest * Full Code Date Activated Date Inactivated Comments 05/22/2020 2:16 PM 05/24/2020 6:30 PM Care Teams Medical Logistics Specialist Relationship Specialty Start Date End Date No, Physician PCP - General 08/10/22
--- OUTSIDE RECORDS SUMMARY | 2025-04-09 12:24 | XMS_ITS | Clinical Summary ---
Author Organization [facility] Address [address] [place] [address] Care Team Providers Care Trademark Attorney Name Role Phone Tamar Davison MD Primary Care Provider [phone] Source Comments [facility],non-owned Affiliates and Associated Physician Practices is amultiple site organization consisting of ambulatory clinics and hospital sitesin [place], [place], [place] and [place]. This disclosure is being madepursuant to the Care Everywhere program and may not contain all information available regarding this patient. Last updated 18.Outfittery Allergies No known active allergies Medications * Be aware that medications may not be up to date on this document. Alwaysverify current medications with the patient. MONONESSA 0.25-35 MG-MCG tablet Take 1 Tab by mouth once daily 02/04/2017 Active Active Problems Problem Noted Date Diagnosed Date Concussion 05/07/2016 Overview (05/29/2017): Concussion without loss of consciousness in Mar and since then has had headaches daily- she will have short lasting sharp ice pick like moderate to severe intensity headaches (repeated jabs) lasting for 1-2 min, 1-3 times per day without associated autonomic symptoms. She does have some long lasting headaches- 1 hr or so but these are infrequent. Her neurological examination is significant for overshoot during saccades especially on right gaze but has otherwise a normal non focal neurological exam. 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 Her sleep was not the best but now sleeps well, does not eat healthy, is not physically active and her mood does not appear as upbeat but does not have any thoughts of harming herself and these are very likely playing a role in headache frequency or Responsible for headaches itself CT brain (Mar)- normal She did not like lamotrigine as it was making her dizzy and she discontinued it Plan- No need to restart lamotrigine. Will consider topiramate if needed for headache prophylaxis No need for imaging Start regular exercise. Discussed diet and other lifestyle changes to help control her headaches Referred to psychology for management- CBT to manage pain Family History Medical History Relation Name Comments Mental Health Brother Depression Maternal Grandmother Ataxia Neg Hx Bipolar Disorder Neg Hx Dementia Neg Hx Drug Abuse Neg Hx Mental Retardation Neg Hx Migraine Neg Hx Multiple Sclerosis Neg Hx Neurofibromatosis Neg Hx Neuropathy Neg Hx Parkinson's Disease Neg Hx Seizures Neg Hx Stroke Neg Hx Relation Name Status Comments Brother Maternal Grandmother Social History Tobacco Use Types Packs/Day Years Used Date Smoking Tobacco: Never Smokeless Tobacco: Never Alcohol Use Standard Drinks/Week Comments No 0 (1 standard drink = 0.6 oz pur e alcohol) Comments Unknown Sex and Gender Information Value Date Recorded Sex Assigned at Not on file Legal Sex Female 1:24 PM CDT Gender Identity Not on file Sexual Orientation Not on file Last Filed Vital Signs Vital Sign Reading Time Taken Comments Blood Pressure 120/82 05/29/2017 10:39 AM JAVA SOFTWARE Pulse - - Temperature - - Respiratory Rate - - Oxygen Saturation - - Inhaled Oxygen Concentration - - Weight 110.4 kg (243 lb 6.2 oz) 017 10:39 AM JAVA SOFTWARE Height 166.5 cm (5' 5.55) 05/29/2017 1 0:39 AM JAVA SOFTWARE Body Mass Index 39.82 05/29/2017 10:39 AM JAVA SOFTWARE Plan of Treatment Health Maintenance Due Date Last Done Comments HIV SCREENING 2017 HPV VACCINE (1 - 3-dose series) 2017 CHLAMYDIA/GONORRHEA SCREENING 2018 MENINGOCOCCAL (Group B) VACC INE SHARED DECISION-MAKING (1 of 2 - Standard) 2018 HEPATITIS C SCREENING 01/13/2020 DTAP/TDAP/TD VACCINES (1 - Tdap) 2021 HEPATITIS B VACCINE (1 of 3 - 19+ 3-dose series) 2021 DEPRESSION SCREENING 06/30/2024 COVID-19 VACCINE ( - 2023-2 5 season) 2025 INFLUENZA VACCINE (#1) 2025 ZOSTER VACCINE (1 of 2) 01/18/2052 HIB VACCINE Aged Out No longer eligi ble based on patient's age to complete this topic MENINGOCOCCAL GROUPS A/C/Y/W VACCINE Aged Out No longer eligible b ased on patient's age to complete this topic PNEUMOCOCCAL VACCINE Aged Out No long er eligible based on patient's age to complete this topic Insurance [facility] Care Teams Trademark Attorney Relationship Specialty Start Date End Date Tmaar Davison MD [address] [place] [id number] PCP - General Pediatrics 04/16/16
--- OUTSIDE RECORDS SUMMARY | 2025-04-09 12:24 | XMS_ITS | Clinical Summary ---
Author Organization [facility] Address [address] [place] [address] Phone Care Team Providers Care Principal Solutions Architect Name Role Phone Hermann Ortiz MD Primary Care Provider [phone] Allergies No known active allergies Medications EluRyng 0.12-0.015 MG/24HR RING 01/02/2023 Active Active Problems No known active problems Family History Medical History Relation Name Comments No Known Problems Brother 1 No Known Problems Brother 2 No Known Problems Father No Known Problems Mother Relation Name Status Comments Brother 1 Alive Brother 2 Alive Father Alive Mother Alive Social History Tobacco Use Types Packs/Day Years Used Date Smoking Tobacco: Former Cigarettes Q uit: 08/01/2019 Passive Smoke Exposure: Past Smokeless Tobacco: Never Tobacco Cessation:Counseling Given: No Alcohol Use Standard Drinks/Week Comments Not Currently 0 (1 standard drink = 0.6 oz pur e alcohol) Education Answer Date Recorded What is the highest level of school you have completed or the highest degree you have received? 12th grade 01/27/2023 Sexually Active Control Partners Comments Yes Comments Unknown Sex and Gender Information Value Date Recorded Sex Assigned at Not on file Legal Sex Female 11:18 PM CDT Gender Identity Not on file Sexual Orientation Not on file Last Filed Vital Signs Vital Sign Reading Time Taken Comments Blood Pressure 110/74 01/27/2023 3:26 PM CDT Pulse 96 01/27/2023 3:26 PM CDT Temperature 36.6 C (97.8 F) 01/27/2023 3:26 PM CDT Respiratory Rate - - Oxygen Saturation 98% 01/27/2023 3:26 PM CDT Inhaled Oxygen Concentration - - Weight 93.9 kg (207 lb) 01/27/2023 3:26 PM CDT Height 165.1 cm (5' 5) 01/27/2023 3:26 PM CDT Body Mass Index 34.45 01/27/2023 3:26 PM CDT Plan of Treatment Health Maintenance Due Date Last Done Comments Hepatitis C Virus (HCV) Screening 2002 Pap Smear 2023 Influenza Immunization (#1) 02/28/202503/30, 04/15/2013, 04/06/2012, Additional history exists SARS-COV-2 Immunization ( - season) 2025 Respiratory Syncytial Virus (RSV) Immunization (Adult) (1 - 1-dose 75+ series) 2077 Hepatitis B Immunization Completed 003, 2002, 2002 Pneumococcal Immunization Combined Aged Out 04/26/2003, 2002, 2002 No longer eligible based on patient's age to complete this topic DTaP/Tdap/Td Immunization Discontinued 2011, 02/05/2006, 04/26/2003, Additional history exists TdaP Immunization Completed 04/06/2012 Human Papillomavirus (HPV) Immunization Completed 08/26/2013, 03/25/2013, 01/21/2013 Meningococcal Immunization (ACWY) Completed 04/17/2018, 01/21/2013 Meningococcal B Immunization Completed 09/23/2018, 08/24/2018 Rotavirus Immunization Aged Out No lo nger eligible based on patient's age to complete this topic Insurance MEDICAID [facility] Care Teams Principal Solutions Architect Relationship Specialty Start Date End Date Hermann Ortiz MD PCP - General Internal Medicine 01/27/23
--- OUTSIDE RECORDS SUMMARY | 2025-04-09 12:24 | XMS_ITS | Encounter Summary ---
Author Organization [facility] Address [address] [place] [address] Care Team Providers Care Case Assembler Name Role Phone Tamar Davison MD Primary Care Provider [phone] Lydia, Physician Primary Care Provider [phone] Encounter Details Date Type Department Care Team (Late st Contact Info) Description 12/15/2019 Telephone [facility] [address] [place] [id number] Yahaira Cope, [facility] Social History Tobacco Use Types Packs/Day Years Used Date Smoking Tobacco: Never Smokeless Tobacco: Never Alcohol Use Standard Drinks/Week Comments Never 0 (1 standard drink = 0.6 oz pur e alcohol) AUDIT-C Answer Date Recorded Frequency of Alcohol Consumption Never 02/26/2019 Average Number of Drinks Not on file 019 Frequency of Binge Drinking Not on file 01/30 Comments Yes Sex and Gender Information Value Date Recorded Sex Assigned at Not on file Legal Sex Female 7:44 PM MOBILE HOME TECHNICIAN Gender Identity Not on file Sexual Orientation Not on file documented as of this encounter Plan of Treatment Not on file documented as of this encounter Visit Diagnoses Not on filedocumented in this encounter Care Teams Case Assembler Relationship Specialty Start Date End Date Tamar Davison MD [address] [place] [address] PCP - General 01/20/18 08/09/22 No, Physician PCP - General 08/10/22 documented as of this encounter
--- OUTSIDE RECORDS SUMMARY | 2025-04-09 12:26 | XMS_ITS | Encounter Summary ---
Author Organization [facility] Address [address] [place] [address] Care Team Providers Care Rotor Casting Machine Operator Name Role Phone Tamar Davison MD Primary Care Provider [phone] Encounter Details Date Type Department Care Team (Late st Contact Info) Description 09/29/2019 Telephone [facility] Pediatrics - [address] [place] [address] Sincere Esqueda MD [address] [place] [address] Social History Tobacco Use Types Packs/Day Years Used Date Smoking Tobacco: Never Smokeless Tobacco: Never Alcohol Use Standard Drinks/Week Comments No 0 (1 standard drink = 0.6 oz pur e alcohol) Comments Unknown Sex and Gender Information Value Date Recorded Sex Assigned at Not on file Legal Sex Female 1:24 PM CDT Gender Identity Not on file Sexual Orientation Not on file COVID-19 Exposure Response Date Recorded In the last month, have you been in contact with someone who was confirmed or suspected to have Coronavirus / COVID-19? No / Unsure 09/29/2019 2:23 PM CDT documented as of this encounter Miscellaneous Notes * Telephone Encounter - Frankie Schaefer - 11/19/2019 9:30 AM CDT Called Mom to see if pt will still be at her appt on Saturday 11/[address] Esqueda. Mom canceled due to pt being , and not wanting to go out during the pandemic. She says thatthey will likely see an adult provider instead, since pt will be 20 by the time they are ready for another appt. * Telephone Encounter - Frankie Schaefer - 09/29/2019 11:54 AM CDT Mom left a message requesting to reschedule new pt appt Saturday 09/30. Routing to GI Schedulers. Please see this note from Kayleigh: New patient's wanting to be seen or rescheduled before 60-90 days may do so, per Dr. French. documented in this encounter Plan of Treatment Not on file documented as of this encounter Visit Diagnoses Not on filedocumented in this encounter Care Teams Rotor Casting Machine Operator Relationship Specialty Start Date End Date Tamar Davison MD [address] [place] [id number] PCP - General Pediatrics 04/16/16 documented as of this encounter
[2025-04-09 12:31] VITALS: BP 140/61; PULSE 78; RESP 14; TEMP 36.3; O2SAT 100
[2025-04-09 13:18] LABS: BEDSIDEPREGUCG Negative (Negative); EDUAAPPEAR Cloudy; EDUABILI Negative (Negative); EDUABLOOD 3+ (Negative); EDUACOLOR1 Tea Colored; EDUAGLUCOSE Negative (Negative); EDUAKETONE Negative (Negative); EDUALEUKO Negative (Negative); EDUANITRATE Negative (Negative); EDUAPH 7.0; EDUAPROTEIN 1+ (Negative); EDUASPGRAVITY 1.020; EDUAUROBILI 1.0
== END 2025-04-09 13:46 | disposition short-term general hospital (02) ==
PROVIDERS: Emergency Provider Nurse Practitioner Family
DX: R10.A3 Flank pain, bilateral (principal); N93.9 Abnormal uterine and vaginal bleeding, unspecified; R10.84 Generalized abdominal pain
CPT/HCPCS: 74018; 81003; 81025; 99213; G0463

== ENCOUNTER 2025-04-25 12:20 | Emergency (ER) | payer OTHER, SELFPAY ==
[2025-04-25 12:30] VITALS: BP 140/59; PULSE 90; RESP 18; TEMP 36.7; O2SAT 100
--- NOTE | 2025-04-25 13:13 | ED_ITS ---
HPI - General Adult General Chief complaint: Syncope Stated complaint: Patient passed out / needs [facility] note Time Seen by Provider: 04/25/25 13:05 Mode of arrival: ambulatory Limitations: no limitations History of Present Illness HPI narrative: 25-year-old female with history of POTS presents with concern for syncope at work. She reports this happens her occasionally, she reports she feels normal now is not have any fast heart rate, trouble breathing, dizziness, lightheadedness. She did not hit her head or have any other injury. Reports her workplace required have a note before she could return. She does not currently have a primary care or remote sensing scientist. Related Data Home Medications ?Medication ?Instructions ?Recorded ?Confirmed ?Last Taken ?Type No Home Medications 04/25/25 04/25/25 U nknown History Allergies Allergy/AdvReac Type Severity Reaction Status Date / Time No Known Allergies Allergy Verified 04/25/25 12:30 Review of Systems Review of Systems: CONSTITUTIONAL: Denies malaise, chills, sweats, or fever. EYES: Denies visual changes CARDIOVASCULAR: Denies chest pain, palpitations, or edema. RESPIRATORY: Denies cough or dyspnea. NEUROLOGIC: Denies numbness, weakness, or headache. All systems reviewed & are unremarkable except as noted in HPI and below PMFSH Past Medical History Medical History No pertinent past medical history Surgical History Surgical History No pertinent past surgical history Family History Family History Mother Family history non-contributory Social History Social History Substance use: never Gender identity (if verbalized by the patient): Female Spiritual care concerns: No Comments At time of signature, agree with nursing past medical, surgical, social and family history. There is no relevant family history pertinent to the presenting complaint Exam Narrative: GENERAL: Well-appearing, well-nourished, and in no acute distress. HEAD: Normocephalic, atraumatic. EYES: PERRLA, sclera clear, and EOMI. No nystagmus. ENT: Nares clear. Mucous membranes moist. NECK: Supple. CHEST: No respiratory distress. Clear to auscultation. No bony deformities, no asymmetry. Speaks in full sentences. HEART: Regular rate and rhythm. No murmur heard. Normal peripheral pulses. EXTREMITIES: Normal range of motion. No edema. Normal strength and sensation. SKIN: Warm, dry, no visible rash. NEURO: Alert and oriented x3. No focal deficits. Cranial nerves II through XII grossly intact PSYCH: Normal mood and affect Course Course Emergency Course: Patient is aware of diagnosis, understands and agrees to treatment plan. Anticipatory guidance given. Patient agrees to follow-up as directed and is aware of reasons to seek care at the emergency department. Portions of this record may have been created with voice recognition software Level of Care: [facility] Visit Vital Signs Vital signs: Vital Signs Temperature 98.1 F 04/25/25 12:30 Pulse Rate 90 04/25/25 12:30 Respiratory Rate 18 04/25/25 12:30 Blood Pressure 140/59 L 04/25/25 12:30 Pulse Oximetry 100 04/25/25 12:30 Oxygen Delivery Room Air 04/25/25 12:30 Temperature 98.1 F 04/25/25 12:30 Pulse Rate 90 04/25/25 12:30 Respiratory Rate 18 04/25/25 12:30 Blood Pressure 140/59 L 04/25/25 12:30 Pulse Oximetry 100 04/25/25 12:30 Oxygen Delivery Room Air 04/25/25 12:30 Reviewed. Medical Decision Making MDM Narrative Medical decision making narrative: The patient was evaluated by myself in the [facility]. History is obtained fro m patient who is an independent historian and physical exam was performed.? Available medical records were reviewed at this time. ? Exam findings show no acute concerns or changes; patient is non-toxic appearing and is in no distress. Patient is appropriate for outpatient treatment and follow-up. ? I have evaluated and discussed social determinants of health with the patient that could potentially impact subsequent diagnosis and treatment plans. ? Differential diagnosis and treatment plan were discussed with the patient. Patient agrees with discussion and after shared medical decision making agrees with plan of care. All questions were answered to the patient's satisfaction. Vital Signs Vital Signs: Vital Signs Temperature 98.1 F 04/25/25 12:30 Pulse Rate 90 04/25/25 12:30 Respiratory Rate 18 04/25/25 12:30 Blood Pressure 140/59 L 04/25/25 12:30 Pulse Oximetry 100 04/25/25 12:30 Oxygen Delivery Room Air 04/25/25 12:30 Temperature 98.1 F 04/25/25 12:30 Pulse Rate 90 04/25/25 12:30 Respiratory Rate 18 04/25/25 12:30 Blood Pressure 140/59 L 04/25/25 12:30 Pulse Oximetry 100 04/25/25 12:30 Oxygen Delivery Room Air 04/25/25 12:30 Critical Care Time Critical Care Time Critical Care Time: No Discharge Plan Discharge Clinical Impression: Normal exam Patient Disposition: Home Condition: Stable Instructions: Normal Exam (ED) Additional Instructions: 1) Please follow-up with your primary care doctor in the next 1-2 days. 2) If you have any worsening of symptoms or any other urgent concerns please go to the ER. 3) Please take medications as prescribed and continue taking your home medications as usual. 4) Please read and follow information included in discharge instructions. Patient Language: Macedonian Prescriptions: No Action No Home Medications Follow-up/Referrals: PHYSICIAN,SCREEN MAKING SUPERVISOR [Primary Care Provider, Internal Medicine] Raymon Chavez MD [Physician, Family Practice] Stand Alone Forms: Work/School Release IP Time of Disposition: 13:16
--- OUTSIDE RECORDS SUMMARY | 2025-04-25 13:41 | XMS_ITS | Clinical Summary ---
Author Organization [facility] Address [address] [place] [address] Care Team Providers Care Ditching Machine Operating Engineer Name Role Phone Tamar Davison MD Primary Care Provider [phone] Source Comments [facility],non-owned Affiliates and Associated Physician Practices is amultiple site organization consisting of ambulatory clinics and hospital sitesin [place], [place], [place] and [place]. This disclosure is being madepursuant to the Care Everywhere program and may not contain all information available regarding this patient. Last updated 18.[employer] Allergies No known active allergies Medications * [...] Comments Blood Pressure 120/82 05/29/2017 10:39 AM FILTER TANK OPERATOR Pulse - - Temperature - - Respiratory Rate - - Oxygen Saturation - - Inhaled Oxygen Concentration - - Weight 110.4 kg (243 lb 6.2 oz) 017 10:39 AM FILTER TANK OPERATOR Height 166.5 cm (5' 5.55) 05/29/2017 1 0:39 AM FILTER TANK OPERATOR Body Mass Index 39.82 05/29/2017 10:39 AM FILTER TANK OPERATOR Plan of Treatment Health Maintenance Due Date [...] patient's age to complete this topic Insurance [facility] Care Teams Ditching Machine Operating Engineer Relationship Specialty Start Date End Date Tamar Davison MD [address] [place] [id number] PCP - General Pediatrics 04/16/16
--- OUTSIDE RECORDS SUMMARY | 2025-04-25 13:41 | XMS_ITS | Encounter Summary ---
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
--- OUTSIDE RECORDS SUMMARY | 2025-04-25 13:41 | XMS_ITS | Encounter Summary ---
Author Organization [facility] Address [address] [place] [address] Care Team Providers Care Parts Sales Associate Name Role Phone Tamar Davison MD Primary Care Provider [phone] Encounter Details Date Type Department Care Team (Late st Contact Info) Description 09/29/2019 Telephone [facility] [address] [place] [address] Sincere Esqueda MD [address] [place] [address] Social History Tobacco Use Types [...] on filedocumented in this encounter Care Teams Parts Sales Associate Relationship Specialty Start Date End Date Tamar Davison MD [address] [place] [id number] PCP - General Pediatrics 04/16/16 documented as of this encounter
--- OUTSIDE RECORDS SUMMARY | 2025-04-25 13:41 | XMS_ITS | Clinical Summary ---
Author Organization [facility] Address [address] [address] Phone Care Team Providers Care Flake Cutter Operator Name Role Phone Hermann Ortiz MD Primary Care Provider [phone] Allergies No known active allergies Medications EluRyng [...] age to complete this topic Insurance MEDICAID [facility] Care Teams Flake Cutter Operator Relationship Specialty Start Date End Date Hermann Ortiz MD PCP - General Internal Medicine 01/27/23
--- OUTSIDE RECORDS SUMMARY | 2025-04-25 13:42 | XMS_ITS | Clinical Summary ---
Author Organization [facility] Address [address] [place] [address] Care Team Providers Care Aluminizer Name Role Phone No, Physician Primary Care Provider [phone] Allergies No known active allergies Medications PNV #[id number] acid-dha 35 mg iron-5 mg iron-1 mg [...] 12/27/2019 Urinary tract infection in female 12/27/2019 Encounters Date Type Department Care Team Description 04/09/2025 7:46 PM CDT - 04/09/2025 7:59 PM CDT Emergency [facility] Emergency Department [address] [place] [address] Hematuria, unspecified type (Primary Dx); Bilateral flank pain Discharge Disposition: Discharge to home or self care from Last 3 Months Immunizations Immunization Administration Dates Next Due MMR [...] often do you attend chur ch or shinto services? Never 07/04/2022 Do you belong to any clubs o r organizations such as sikh groups, unions, fraternal or athletic groups, or [...] staff should administer the PHQ-9) 0 07/04/2022 [facility] - Occupational Stress Questionnaire Answer Date [...] money to buy more. Never true 07/04/19 23 Within the past 12 months, t he [...] place to sleep or slept in a fdc (including now)? No 07/04/2022 Personal Safety Answer Date Recorded Have you ever been in or are you currently in a harmful physical or emotional relationship or is someone making you feel afraid or unsafe? 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 Gender Identity Not on file Sexual Orientation [...] N Livin g 9 9 [place] ,BOYS JOSH Zakiya Quach MD Complications:None [facility] 2021 Term 39w 4d 1h 10m 0h 43m/0h 20m/0h 07m 2.88 kg (6 lb 5.6 oz) F Vag-S pont Epidur al N Livin g 9 9 SHASHI ,GIRL Zakiya Mcgill MD Complications:Precipitous La bor (<3 hours) Delivery [facility] 2022 Term 39w 0d 1h 57m 1h 45m/0h 07m/0h 05m 3.607 kg (7 lb 15.2 oz) F Epidur al N Livin g 9 9 SHASHI ,GIRL Zakiya Mcgill MD Complications:Precipitous La bor (<3 hours) Delivery Location[facility]) Last Filed Vital Signs Vital Sign Reading Time Taken Comments Blood Pressure 113/63 04/09/2025 7:59 PM CDT Pulse 77 04/09/2025 7:59 PM CDT Temperature 36.4 C (97.6 F) 04/09/2025 4:16 PM CDT Respiratory Rate 14 04/09/2025 7:59 PM CDT Oxygen Saturation 99% 04/09/2025 7:59 PM CDT Inhaled Oxygen Concentration - - Weight 103 kg (227 lb) 04/09/2025 4:16 PM CDT Height 165.1 cm (5' 5) 04/09/2025 4:16 PM CDT Body Mass Index 37.77 04/09/2025 4:16 PM CDT Plan of Treatment Health Maintenance [...] 01/21/2013 Meningococcal B Vaccine Completed 09/23/2018, 08/24 Procedures Procedure Name Priority Date/Time Associated Diagnosis Comments CT ABDOMEN PELVIS W CONTRAST ED 04/09/2025 6:29 PM CDT POCT HCG, URINE Routine 04/09/2025 4:51 PM CDT URINALYSIS, MICROSCOPIC ONLY STAT 04/09/2025 4:48 PM CDT URINALYSIS AND REFLEX TO MICROSCOPIC AND CULTURE STAT 04/09/2025 4:48 PM CDT EGFR STAT 04/09/2025 4:27 PM CDT DIFFERENTIAL AUTO STAT 04/09/2025 4:2 7 PM CDT LIPASE STAT 04/09/2025 4:27 PM CDT COMPREHENSIVE METABOLIC PANEL STAT 04/09/2025 4:27 PM CDT CBC WITH AUTO DIFFERENTIAL STAT 04/09/2025 4:27 PM CDT from Last 3 Months Results * CT Abdomen Pelvis W Contrast (04/09/2025 6:29 PM CDT) Anatomical Region Laterality Modality Body N/A Computed Tomogra phy 04/09/2025 6:31 PM CDT Narrative 04/09/2025 6:40 PM CDT EXAM DESCRIPTION: CT ABDOMEN PELVIS W CONTRAST REASON FOR STUDY: Vaginal bleeding, bilateral flank pain Pt to the ED with c/o left flank pain and abd pain. Increased vaginal bleeding. Pt reports that she had normal period a week ago and then today woke up covered in blood and has been passing blood clots. TECHNIQUE: CT scan of the abdomen and pelvis performed with intravenous and without oral contrast using helical scanning technique with dynamic intravenous contrast injection. Reconstructed coronal and sagittal MPR images reviewed. All images stored on PACS. Automated exposure control was used as a dose optimization technique for this examination. CONTRAST TYPE/DOSE: 100mL of IOVERSOL 350 MG IODINE/ML INTRAVENOUS SYRINGE injected via intravenous COMPARISON: None available. FINDINGS: LOWER CHEST: No significant pulmonary abnormalities. No effusion. LIVER: Normal size. No identified cystic or solid masses. GALLBLADDER: Contracted. No stones identified. No wall thickening or inflammatory changes. BILE DUCTS: No intrahepatic or extrahepatic ductal dilatation. SPLEEN: Normal size. No focal lesions. PANCREAS: No identified cystic or solid masses. No significant calcifications. No adjacent inflammation or peripancreatic fluid collections. Pancreatic duct not dilated. ADRENALS: Normal. KIDNEYS/URINARY TRACT: No identified significant cystic or solid masses. No visualized stones. No hydronephrosis or hydroureter. Symmetric enhancement. Urinary bladder is unremarkable. GI: No dilated bowel loops. No obvious wall thickening. Normal appendix. No significant diverticular disease. PERITONEUM: No ascites or free air. RETROPERITONEUM: No mass or adenopathy. REPRODUCTIVE: No significant abnormality. VASCULATURE: No abdominal aortic aneurysm. MUSCULOSKELETAL: No significant abnormality. OTHER: No other abnormality. IMPRESSION: No urinary tract calculi or obstructive uropathy. No acute intra-abdominal/pelvic abnormality. THIS IS AN ELECTRONICALLY VERIFIED FINAL REPORT 04/09/2025 6:40 PM - Electronically signed by Gilson Corrales M.D. MF: KEEGAN Report ID: [id number] Reading Location: [id number] Procedure Note Gilson Corrales, DO - 04/09/2025 EXAM DESCRIPTION: CT ABDOMEN PELVIS W CONTRAST REASON FOR STUDY: Vaginal bleeding, bilateral flank pain Pt to the ED with c/o left flank pain and abd pain. Increased vaginal bleeding. Pt reports that she had normal period a week ago and then todaywoke up covered in blood and has been passing blood clots. TECHNIQUE: CT scan of the abdomen and pelvis performed with intravenousand without oral contrast using helical scanning technique with dynamic intravenous contrast injection. Reconstructed coronal and sagittal MPRimages reviewed. All images stored on PACS. Automated exposure control was usedas a dose optimization technique for this examination. CONTRAST TYPE/DOSE: 100mL of IOVERSOL 350 MG IODINE/ML INTRAVENOUSSYRINGE injected via intravenous COMPARISON: None available. FINDINGS: LOWER CHEST: No significant pulmonary abnormalities. No effusion. LIVER: Normal size. No identified cystic or solid masses. GALLBLADDER: Contracted. No stones identified. No wall thickening or inflammatory changes. BILE DUCTS: No intrahepatic or extrahepatic ductal dilatation. SPLEEN: Normal size. No focal lesions. PANCREAS: No identified cystic or solid masses. No significant calcifications. No adjacent inflammation or peripancreatic fluidcollections. Pancreatic duct not dilated. ADRENALS: Normal. KIDNEYS/URINARY TRACT: No identified significant cystic or solid masses.No visualized stones. No hydronephrosis or hydroureter. Symmetricenhancement. Urinary bladder is unremarkable. GI: No dilated bowel loops. No obvious wall thickening. Normalappendix. No significant diverticular disease. PERITONEUM: No ascites or free air. RETROPERITONEUM: No mass or adenopathy. REPRODUCTIVE: No significant abnormality. VASCULATURE: No abdominal aortic aneurysm. MUSCULOSKELETAL: No significant abnormality. OTHER: No other abnormality. IMPRESSION: No urinary tract calculi or obstructive uropathy. No acute intra-abdominal/pelvic abnormality. THIS IS AN ELECTRONICALLY VERIFIED FINAL REPORT 04/09/2025 6:40 PM - Electronically signed by Gilson ALLISON: KEEGAN Report ID: [id number] Reading Location: [place] [address] PROCEDURE S Final Result * POCT hCG, urine (04/09/2025 4:51 PM CDT) HCG, ur, POC Negative Negative Lot Number [id number] QC Backgroud Clear Acceptable QC Control Line Acceptable Urine 04/09/2025 4:51 PM CDT Carina SCHROEDER POINT OF CARE TEST ORDERABLES F inal Result * (ABNORMAL) Urinalysis reflex to microscopic and culture Urine (04/09/2025 4:48 PM CDT) Color, ur Light-[place] Clarity, ur Turbid(A) Clear [facility] ([place]) Specific gravity, ur 1.024 1.003 - 1.030 [facility] ([place]) pH, urine 8.0 [facility] ([place]) Comment: Interpretive Data U rine pH is affected by diet, medications, systemic acid-base disturbances, and renal tubular function. pH may affect urinary stone formation. For example, urine pH below 6.0 may help reduce the tendency for calcium phosphate stones and pH greater than 6.0 may reduce the tendency for uric acid stone formation. Source: [facility] nooked Current Interpretive Data was last revised on 2017 Protein, ur ql 1+(A) Negative [facility] ([place]) Glucose, ur ql Negative Negative [facility] ([place]) Ketones, ur Negative Negative [facility] ([place]) Bilirubin, ur Negative Negative [facility] ([place]) Blood, ur 3+(A) Negative [facility] ([place]) Urobilinogen, ur 2.0(A) <2.0 mg/dL [facility] ([place]) Nitrite, ur Negative Negative [facility] ([place]) Leukocyte esterase, ur Negative Negative [facility] ([place]) UA reflex comment Reflex to microscopic UA will be performed. [facility] ([place]) Urine 04/09/2025 4:48 PM CDT 04/09/2025 4:58 PM CDT Carina [facility]RO[facility] LAB MICROBIOLOGY - GENERAL ORDE MARIXA Final Result [facility] ([place]) 1 [facility] Department [place] [address] * (ABNORMAL) Urinalysis, microscopic only (04/09/2025 4:48 PM CDT) WBC, ur 0-5 0 - 5 /HPF RBC, ur >50(A) 0 - 2 /HPF [facility] Epithelial cells, squamous, ur 11-20(A) 0 - 5 /HPF [facility] ([place]) Comment:Suggestive of contam ination. Consider recollection by clean catch. Mucous, ur Present(A) [facility] ([place]) Calcium oxalate crystals, ur Trace(A) [facility] ([place]) Culture Reflex Comment Reflex conditions for urine culture (WBC >10) not met. [facility] ([place]) Urine 04/09/2025 4:48 PM CDT 04/09/2025 4:58 PM CDT us Carina SCHRO[facility] LAB URINE ORDERABLES Final Resu lt [facility] COUNTS INCLUDE [facility]S AT THE [facility] 1 [facility] Department [place] [address] * eGFR (04/09/2025 4:27 PM CDT) eGFR >90 >=60 mL/min/1. 73 m2 Comment: Interpretive Data Reference Interval Normal >/= 90 mL/min/1.73m2 Mildly decreased* 60 - 89 mL/min/1.73m2 Mildly to moderately decreased 45 - 59 mL/min/1.73m2 Moderately to severely decreased 30 - 44 mL/min/1.73m2 Severely decreased 15 - 29 mL/min/1.73m2 Kidney Failure < 15 mL/min/1.73m2 *Relative to young adult level Estimated glomerular filtration rate is determined by the 2020 CKD-EPI equation recommended by the National Kidney Foundation (A Unifying Approach to GFR Estimation: Recommendations of the NKF-ASK Task Force on Reassessing the Inclusion of Race in Diagnosing Kidney Disease, JASN 2020). The CKD-EPI equation should not be used for patients with unstable renal function and has not been validated in children and those over 70. Current interpretive data was last reviewed 2021. Blood 04/09/2025 4:27 PM CDT 04/09/2025 4:28 PM CDT us Carina SCHRO[facility]ER LAB BLOOD ORDERABLES Final Resu lt [facility] ([place]) 1 [facility] Department [place] [address] * Differential, auto (04/09/2025 4:27 PM CDT) Neutrophil abs 4.88 1.50 - 6.50 K/cumm Imm gran abs 0.02 0.00 - 0.10 K/cumm [facility] ([place]) Lymphocyte abs 2.00 0.80 - 3.30 K/cumm [facility] ([place]) Monocyte abs 0.53 0.20 - 0.80 K/cumm [facility] ([place]) Eosinophil abs 0.26 0.00 - 0.50 K/cumm [facility] ([place]) Basophil abs 0.03 0.00 - 0.10 K/cumm [facility] ([place]) Neutrophil pct 63.1 % [facility] ([place]) Comment: Interpretive Data Percent cell count reference ranges are not reported, since discordance with absolute values may lead to misinterpretation of CBC data. Current Interpretive Data was last revised on 2017. Imm gran pct 0.3 % [facility] ([place]) Comment: Interpretive Data Percent cell count reference ranges are not reported, since discordance with absolute values may lead to misinterpretation of CBC data. Current Interpretive Data was last revised on 2017. Lymphocyte pct 25.9 % [facility] ([place]) Comment: Interpretive Data Percent cell count reference ranges are not reported, since discordance with absolute values may lead to misinterpretation of CBC data. Current Interpretive Data was last revised on 2017. Monocyte pct 6.9 % [facility] ([place]) Comment: Interpretive Data Percent cell count reference ranges are not reported, since discordance with absolute values may lead to misinterpretation of CBC data. Current Interpretive Data was last revised on 2017. Eosinophil pct 3.4 % [facility] ([place]) Comment: Interpretive Data Percent cell count reference ranges are not reported, since discordance with absolute values may lead to misinterpretation of CBC data. Current Interpretive Data was last revised on 2017. Basophil pct 0.4 % [facility] ([place]) Comment: Interpretive Data Percent cell count reference ranges are not reported, since discordance with absolute values may lead to misinterpretation of CBC data. Current Interpretive Data was last revised on 2017. Blood 04/09/2025 4:27 PM CDT 04/09/2025 4:28 PM CDT us Carina SCHRO[facility] LAB BLOOD ORDERABLES Final Resu lt [facility] ([place]) 1 [facility] Department [place] [address] * CBC with auto differential (04/09/2025 4:27 PM CDT) WBC 7.72 3.80 - 9.90 K/cumm Hgb 12.8 11.9 - 15.5 g/dL [facility] ([place]) Hct 39.1 35.6 - 45.5 % [facility] ([place]) Plt 265 150 - 400 K/cumm [facility] ([place]) MPV 11.2 9.1 - 12.3 fL [facility] ([place]) RBC 4.41 3.90 - 5.20 M/cumm [facility] ([place]) MCV 88.7 81.3 - 96.4 fL [facility] ([place]) MCH 29.0 27.1 - 33.3 pg [facility] ([place]) MCHC 32.7 32.3 - 35.7 g/dL [facility] ([place]) RDW CV 12.9 11.1 - 14.9 % [facility]) RDW SD 42.1 35.7 - 48.1 fL [facility] ([place]) NRBC abs 0.00 0.00 - 0.01 K/cumm [facility] ([place]) Blood Venous blood specimen / Unknown 04/09/2025 4:27 PM CDT 04/09/2025 4:28 PM CDT Carina Espino [place] LAB BLOOD ORDERABLES Final Resu lt [facility] ([place]) 1 [facility] [place] [address] * Lipase (04/09/2025 4:27 PM CDT) Lipase 35 10 - 99 Units/L Blood Venous blood specimen / Unknown 04/09/2025 4:27 PM CDT 04/09/2025 4:28 PM CDT Carina Espino PA LAB BLOOD ORDERABLES Final Resu lt Performing Organization Address City/[facility] Co de Phone Number [facility] ([place]) 1 [facility] [place] [address] * Comprehensive metabolic panel (04/09/2025 4:27 PM CDT) Sodium 136 135 - 145 mmol/L Potassium, pl 4.1 3.3 - 4.9 mmol/L [facility] ([place]) Chloride 104 97 - 110 mmol/L [facility]) CO2 25 22 - 32 mmol/L [facility]) Anion gap 7 2 - 15 mmol/L [facility] BUN 6 6 - 25 mg/dL [facility] ([place]) Creatinine 0.74 0.60 - 1.10 mg/dL [facility] ([place]) Glucose 98 70 - 199 mg/dL [facility] ([place]) Comment: Interpretive Data Fasting glucose >/= 126 mg/dl is diagnostic for diabetes. Fasting is defined as no caloric intake for at least 8 hours. Fasting glucose between 100 mg/dl to 125 mg/dl is diagnostic of prediabetes. In a patient with classic symptoms of hyperglycemia or hyperglycemic crisis, a random glucose >/= 200 mg/dl is diagnostic for diabetes. In the absence of unequivocal hyperglycemia, results should be confirmed by repeat testing. The classification and Diagnosis of Diabetes Diabetes Care 2021; 46: S19-S40. Current interpretive data was last revised 2022. Calcium 9.2 8.5 - 10.3 mg/dL [facility] ([place]) Bilirubin, total 0.4 0.1 - 1.2 mg/dL [facility] ([place]) Protein, pl 7.0 6.5 - 8.5 g/dL [facility] ([place]) Albumin 4.1 3.5 - 5.0 g/dL [facility] ([place]) Alk phos 72 40 - 130 Units/L [facility] ([place]) ALT 13 7 - 45 Units/L [facility] ([place]) AST 28 10 - 45 Units/L [facility] ([place]) Blood Venous blood specimen / Unknown 04/09/2025 4:27 PM CDT 04/09/2025 4:28 PM CDT us Carina SCHROEDER LAB BLOOD ORDERABLES Final Resu lt [facility] ([place]) 1 [facility] Department [place] [address] from Last 3 Months Insurance [facility] Advance Directives For more information, please contact: [phone] * Full Code (Latest Code Status on [...] 2:16 PM 05/24/2020 6:30 PM Care Teams Aluminizer Relationship Specialty Start Date End Date No, Physician PCP - General 08/10/22
--- OUTSIDE RECORDS SUMMARY | 2025-04-25 13:45 | XMS_ITS | Data Portability ---
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 ION HURTADO Primary Care Provider Assessment Encounter Date Assessment Date Assessment LastModified by Organization Details LastModified Time 10/15/2022 10/15/2022 Will restest urine for STDs at pts request rx for UTI call if doesnt improve Not available 10/15/2022 16:13:07 01/02/2023 01/02/2023 After discussion of pros and cons of all contraceptive options, she will elect to try vaginal; ring instructions given Not available 01/02/2023 17:04:47 01/27/2024 01/27/2024 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 Lab vaginal pathogens panel, BLAIRE+probe, vaginal fluid 2024 025 [facility], [address] [facility], [facility] [address], [place], [address], 5 07:15:27 vaginal pathogens panel, BLAIRE+probe, vaginal fluid 2024 025 [facility], [address] [facility], [facility] [address], [place], [address], 5 07:08:53 test, urine 2024 025 In-Office Order, Internal Use Only DO Not Attach Compendium DO Not Attach Compendium, Do Not Delete/merge, [id number] 5 12:10:52 cytology report, thin prep, smear or scraping, cervical or vaginal 2023 024 [facility], [address] [place] [address], [facility] [address], [place], [address], 4 16:20:30 urinalysis, dipstick 2022 023 In-Office Order, Internal Use Only DO Not Attach Compendium DO Not Attach Compendium, Do Not Delete/merge, [id number] 3 16:12:33 chlamydia trachomatis + neisseria gonorrhoeae + trichomonas vaginalis DNA panel, BLAIRE+probe, unspecified specimen 2022 023 [facility], [address] [facility], [facility] [address], [place], [address], 3 07:14:17 Referral None recorded. Procedures None recorded. Surgeries None recorded. Imaging None recorded. Medication Orders Xulane 150 mcg-35 mcg/24 hr transdermal patch 2024 025 [facility], [address] [place], [address], 5 12:10:57 EluRyng 0.12 mg-0.015 mg/24 hr vaginal ring 2023 024 [facility], [address] [place], [address], 5 10:19:26 NuvaRing 0.12 mg-0.015 mg/24 hr vaginal 2022 023 [facility], [address] [facility], [place], [address], 5 10:19:26 Macrobid 100 mg capsule 2022 023 [facility], [address] [place], [address], 5 05:01:38 Patient TargetsNo targets recorded. Patient Instructions Encounter Date Encounter Id Patient Instructions Last Modified By Organization Details Last Modified Time 10/15/2022 [id number] painful urinatio n (dysuria): care instructions Not available 10/15/2022 16:12:33 12/17/2024 [id number] A healthy lifestyle: care instructions Not available 12/17/2024 14:18:02 vaginal bleeding after sex: care instructions Not available 12/17/2024 14:18:02 Quitting Tobacco : Care Instructions Not available 12/17/2024 14:18:02 Reason for Referral None Reported. Results Created Date Observation Date Name Description Value Unit Range Abnormal Flag Note LastModifiedBy Organization Detail LastModifiedTime 10/09/1910/09/2022 CT, NG, TRICH VAG BY BLAIRE chlamydia by BLAIRE Negati ve negati ve Not Available [facility] ([facility]) [address] [facility], [place], [address], 10/10/2022 07:15:31 10/09/19 23 10/09/2022 CT, NG, TRICH VAG BY BLAIRE gonococcus by BLAIRE Negati ve negati ve Not Available [facility] ([facility]) [address] [facility], [place], [address], 10/10/2022 07:15:31 10/09/19 23 10/09/2022 CT, NG, TRICH VAG BY BLAIRE trich vag by BLAIRE Negati ve negati ve Not Available [facility] ([facility]) [address] [facility], [place], [address], 10/10/2022 07:15:31 10/16/19 23 10/17/2022 CT, NG, TRICH VAG BY BLAIRE chlamydia by BLAIRE Negati ve negati ve Not Available [facility] ([facility]) [address] [facility], [place], [address], 10/17/2022 07:14:17 10/16/19 23 10/17/2022 CT, NG, TRICH VAG BY BLAIRE gonococcus by BLAIRE Negati ve negati ve Not Available [facility] ([facility]) [address] [facility], [place], [address], 10/17/2022 07:14:17 10/16/19 23 10/17/2022 CT, NG, TRICH VAG BY BLAIRE trich vag by BLAIRE Negati ve negati ve Not Available [facility] ([facility]) [address] [facility], [place], [address], 10/17/2022 07:14:17 10/16/1910/15/2022 urina lysis , dipst ick Leukocytes Trace Not Available In-Offi ce Order Internal Use Only DO Not Attach Compendium DO Not Attach Compendium, Do Not Delete/merge, 10/15/2022 16:04:55 10/16/1910/15/2022 urina lysis , dipst ick Nitrite negati ve Not Available In-Office Order Internal Use Only DO Not Attach Compendium DO Not Attach Compendium, Do Not Delete/merge, 10/15/2022 16:04:55 10/16/1910/15/2022 urina lysis , dipst ick Urobilinogen .2 Not Available In-Of fice Order Internal Use Only DO Not Attach Compendium DO Not Attach Compendium, Do Not Delete/merge, 10/15/2022 16:04:55 10/16/19 23 10/15/2022 urina lysis , dipst ick Protein Negati ve Not Available In-Office Order Internal Use Only DO Not Attach Compendium DO Not Attach Compendium, Do Not Delete/merge, [facility] 10/15/2022 16:04:55 10/16/19 23 10/15/2022 urina lysis , dipst ick pH 6.0 Not Available In-Office Order Internal Use Only DO Not Attach Compendium DO Not Attach Compendium, Do Not Delete/merge, [facility] 10/15/2022 16:04:55 10/16/19 23 10/15/2022 urina lysis , dipst ick Blood Hemoly zed: Trace Not Available In-Office Order Internal Use Only DO Not Attach Compendium DO Not Attach Compendium, Do Not Delete/merge, [facility] 10/15/2022 16:04:55 10/16/19 23 10/15/2022 urina lysis , dipst ick Specific [place] 1.030 Not Available In-Off ice Order Internal Use Only DO Not Attach Compendium DO Not Attach Compendium, Do Not Delete/merge, [facility] 10/15/2022 16:04:55 10/16/19 23 10/15/2022 urina lysis , dipst ick Ketone Negati ve Not Available In-Office Order Internal Use Only DO Not Attach Compendium DO Not Attach Compendium, Do Not Delete/merge, [facility] 10/15/2022 16:04:55 10/16/19 23 10/15/2022 urina lysis , dipst ick Bilirubin Negati ve Not Available In-Office Order Internal Use Only DO Not Attach Compendium DO Not Attach Compendium, Do Not Delete/merge, [facility] 10/15/2022 16:04:55 10/16/19 23 10/15/2022 urina lysis , dipst ick Glucose Negati ve Not Available In-Office Order Internal Use Only DO Not Attach Compendium DO Not Attach Compendium, Do Not Delete/merge, [facility] 10/15/2022 16:04:55 01/27/20 24 01/29/2024 IGP,C TNGTV ,RFX APTIM A HPV ASCU chlamydia, nuc. acid amp NEGATI VE negati ve Not Available [facility] ([facility]) [address] [place], [address], 01/30/2024 16:20:30 01/27/20 24 01/29/2024 IGP,C TNGTV ,RFX APTIM A HPV ASCU gonococcus, nuc. acid amp NEGATI VE negati ve Not Available [facility] ([facility]) [address] [place], [address], 01/30/2024 16:20:30 01/27/20 24 01/29/2024 IGP,C TNGTV ,RFX APTIM A HPV ASCU trich vag by BLAIRE NEGATI VE negati ve Not Available [facility] ([facility]) [address] [facility], [place], [address], 01/30/2024 16:20:30 01/27/20 24 01/30/2024 IGP,C TNGTV ,RFX APTIM A HPV ASCU diagnosis: COMMEN T NEGAT PEE FOR INTRA EPITH ELIAL LESIO N OR EMILEE WALSH . Not Available [facility] ([facility]) [address] [facility], [place], [address], 01/30/2024 16:20:30 01/27/20 24 01/30/2024 IGP,C TNGTV ,RFX APTIM A HPV ASCU specimen adequacy: COMMEN T Satis facto ry for evalu ation . No endoc ervic al compo nent is ident ified . Not Available [facility] ([facility]) [address] [place], [address], 01/30/2024 16:20:30 01/27/20 24 01/30/2024 IGP,C TNGTV ,RFX APTIM A HPV ASCU clinician provided ICD10: COMMEN T Z01.4 19 Not Available [facility] ([facility]) [address] [place], [address], 01/30/2024 16:20:30 01/27/20 24 01/30/2024 IGP,C TNGTV ,RFX APTIM A HPV ASCU performed by: RADHA deng, Cytot sammie perez (ASCP ) Not Available [facility] ([facility]) [address] [place], [address], 01/30/2024 16:20:30 01/27/20 24 01/30/2024 IGP,C TNGTV ,RFX APTIM A HPV ASCU . . Not Available [facility] ([facility]) [address] [place], [address], 01/30/2024 16:20:30 01/27/20 24 01/30/2024 IGP,C TNGTV ,RFX APTIM A HPV ASCU note: RADHA Perez The Pap smear is a scree yolanda test stacy damico to aid in the detec tion of shailesh ligna nt and malig nant condi tions of the uteri ne cervi x. It is not a diagn ostic proce dure and shoul d not be used as the sole means of detec ting cervi patrica cance r. Both false -posi tive and false -nega tive repor ts do occur . Not Available [facility] ([facility]) [address] [place], [address], 01/30/2024 16:20:30 01/27/20 24 01/30/2024 IGP,C TNGTV ,RFX APTIM A HPV ASCU test methodology: RADHA Perez This liqui d based ThinP rep(R ) pap test was scree margaux with the use of an image guide medardo wheeler Not Available [facility] ([facility]) [address] [place], [address], 01/30/2024 16:20:30 01/27/20 24 01/30/2024 IGP,C TNGTV ,RFX APTIM A HPV ASCU . COMMEN T The HPV DNA refle x crite tod were not met with this speci men resul t there fore, no HPV testi ng was perfo rmed. Not Available [facility] ([facility]) [address] [place], [address], 01/30/2024 16:20:30 12/18/19 25 12/18/2024 NUSWA B VAGIN ITIS PLUS (VG+) atopobium vaginae HIGH - 2 score abnormal Not Available [facility] ([facility]) [address] [place], [address], 12/20/2024 07:08:53 12/18/19 25 12/18/2024 NUSWA B VAGIN ITIS PLUS (VG+) bvab 2 LOW - 0 score Not Available [facility] ([facility]) [address] [place], [address], 12/20/2024 07:08:53 12/18/19 25 12/18/2024 NUSWA B VAGIN ITIS PLUS (VG+) megasphaera 1 HIGH - 2 score abnormal Calcu late total score by sammy kwan the 3 indiv idual bacte rial vagin osis (BV) marke r score s toget her. Total score is inter prete d as follo ws: Total score 0-1: Indic ates the absen ce of BV. Total score 2: Indet ermin ate for BV. Addit ional clini patrica data shoul d be evalu ated to estab markie a diagn osis. Total score 3-6: Indic ates the prese nce of BV. Not Available [facility] ([facility]) [address] [place], [address], 12/20/2024 07:08:53 12/18/19 25 12/18/2024 NUSWA B VAGIN ITIS PLUS (VG+) shahana albicans, BLAIRE NEGATI VE negati ve Not Available [facility] ([facility]) [address] [place], [address], 12/20/2024 07:08:53 12/18/19 25 12/18/2024 NUSWA B VAGIN ITIS PLUS (VG+) shahana glabrata, BLAIRE NEGATI VE negati ve Not Available [facility] ([facility]) [address] [facility], [place], [address], 12/20/2024 07:08:53 12/18/19 25 12/20/2024 NUA B VAGIN ITIS PLUS (VG+) trich vag by BLAIRE NEGATI VE negati ve Not Available [facility] ([facility]) [address] [facility], [place], [address], 12/20/2024 07:08:53 12/18/19 25 12/20/2024 NUA B VAGIN ITIS PLUS (VG+) chlamydia trachomatis, BLAIRE NEGATI VE negati ve Not Available [facility] ([facility]) [address] [facility], [place], [address], 12/20/2024 07:08:53 12/18/19 25 12/20/2024 NUA B VAGIN ITIS PLUS (VG+) neisseria gonorrhoeae, BLAIRE NEGATI VE negati ve Not Available [facility] ([facility]) [address] [facility], [place], [address], 12/20/2024 07:08:53 12/18/19 25 12/17/2024 pregn vaishali test, urine HCG negati ve Not Available In-Office Order Internal Use Only DO Not Attach Compendium DO Not Attach Compendium, Do Not Delete/merge, [id number] 12/17/2024 11:55:24 03/28/20 25 03/29/2025 NUA B VAGIN ITIS PLUS (VG+) atopobium vaginae MODERA TE - 1 score Not Available [facility] ([facility]) [address] [facility], [place], [address], 03/31/2025 07:15:27 03/28/20 25 03/29/2025 NUA B VAGIN ITIS PLUS (VG+) bvab 2 LOW - 0 score Not Available [facility] ([facility]) [address] [place], [address], 03/31/2025 07:15:27 03/28/20 25 03/29/2025 NUA B VAGIN ITIS PLUS (VG+) megasphaera 1 LOW - 0 score Calcu late total score by sammy kwan the 3 indiv idual bacte rial vagin osis (BV) marke r score s toget her. Total score is inter prete d as follo ws: Total score 0-1: Indic ates the absen ce of BV. Total score 2: Indet ermin ate for BV. Addit ional clini patrica data shoul d be evalu ated to estab markie a diagn osis. Total score 3-6: Indic ates the prese nce of BV. Not Available [facility] ([facility]) [address] [facility], [place], [address], 03/31/2025 07:15:27 03/28/20 25 03/29/2025 NUA B VAGIN ITIS PLUS (VG+) shahana albicans, BLAIRE NEGATI VE negati ve Not Available [facility] ([facility]) [address] [place], [address], 03/31/2025 07:15:27 03/28/20 25 03/29/2025 NUA B VAGIN ITIS PLUS (VG+) shahana glabrata, BLAIRE NEGATI VE negati ve Not Available [facility] ([facility]) [address] [place], [address], 03/31/2025 07:15:27 03/28/20 25 03/30/2025 NUA B VAGIN ITIS PLUS (VG+) trich vag by BLAIRE POSITI VE negati ve abnormal Not Available [facility] ([facility]) [address] [place], [address], 03/31/2025 07:15:27 03/28/20 25 03/30/2025 NUSWA B VAGIN ITIS PLUS (VG+) chlamydia trachomatis, BLAIRE NEGATI VE negati ve Not Available [facility] ([facility]) [address] [facility], [place], [address], 03/31/2025 07:15:27 03/28/2003/30/2025 NUSWA B VAGIN ITIS PLUS (VG+) neisseria gonorrhoeae, BLAIRE NEGATI VE negati ve Not Available [facility] ([facility]) [address] [facility], [place], [address], 03/31/2025 07:15:27 Result Notes None recorded. 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 Sivan Shrestha [place] [facility] 3 11:25:52 76070986 Completed 201906/01/2020 Kimberly Hebblethfabian ite [place], [place] - [facility] 3 16:55:45 Urinary tract infectious disease 55608601 Active 2019 Sivan Shrestha R[place] [facility] 2 16:49:12 Insect bite of finger 088495551 Active 2019 Sivan Shrestha R[place] [facility] 2 16:49:13 50758356 Completed 202008/06/2021 Kimberly Hebblethwa ite [place], [place] - [facility] 3 16:55:45 Normal 93377807 Active 2021 Sivan Shrestha R[place] [facility] 3 11:25:52 46602592 Completed 202107/18/2022 Kimberly roman null, [place] - [facility] 3 16:55:45 Term 00551684 Active 2022 RICHARD Sullivan null, [place] - [facility] 3 11:25:52 Problem Notes None recorded. Procedures Surgical History Date Name Laterality Status Provider Name and Address Organization Details Recorded Time 4 Date of Last Pap Smear completed Alexia Leroy RN [place] - [facility] 01/30/2024 16:26:26 9 Control Implant Removal completed JOEY Lagos Attn: Accounting,[address] [place], [address], [facility] - [facility] 02/22/2019 09:58:32 9 Control Implant Insertion completed JOEY Lagos Attn: Accounting[address] [place], [address], [facility] - [facility] 09/01/2018 12:09:19 7 Control Implant Removal completed JOEY Lagos Attn: Accounting[address] [place], [address], [facility] - [facility] 02/10/2017 15:21:56 7 Control Implant Insertion completed JOEY Lagos Attn: Accounting[address] [place], [address], [facility] - [facility] 07/05/2016 15:51:16 Imaging Results None recorded. Procedure Notes None recorded. Medical Equipment None Reported. Allergies Allergen ID Allergen Name Allergen Category Reaction Reaction Severity Criticality Documentation Date Start Date Code Code System Note Provider Name and Address Organization Details Recorded Time 331066 No known allergy (situatio n) Not available Not available Not available Not available 05/22/2022 52832 6003 SNOMED RICHARD Sullivan null, [place] - [facility] 2 09:48:19 No known drug allergies Medications Name Sig Start Date Stop Date Status Note LastModified by Organization Details LastModified Time amoxicillin 500 mg capsule TAKE 1 CAPSULE BY MOUTH THREE TIMES DAILY FOR 7 DAYS 01/26 completed Not Available Not Available Not Available cetirizine 10 mg tablet Take 1 tablet every day by oral route in the evening for 30 days. 12/21 completed Not Available Not Available Not Available azithromyci n 250 mg tablet Take 2 tablets on day 1, then 1 tablet on days 2-5. 04/17 completed Not Available Not Available Not Available ibuprofen 800 mg tablet TAKE 1 TABLET BY MOUTH EVERY 6 HOURS NEEDED FOR PAIN 01/26 completed Not Available Not Available Not Available fluconazole 150 mg tablet Take 1 tablet every day by oral route for 1 day. 2024 active Not Available Not Available Not Avai lable ondansetron HCl 4 mg tablet Take 2 tablets twice a day by oral route for 30 days. 12/21 completed Not Available Not Available Not Available Tubersol 5 tub. unit/0.1 mL intradermal injection solution Administe r .1ml interderm ally 03/28 completed Not Available Not Available Not Available penicillin V potassium 500 mg tablet TAKE 1 TABLET BY MOUTH THREE TIMES DAILY 04/22 completed Not Available Not Available Not Available metronidazo le 500 mg tablet Take 2 tablets twice a day by oral route with meal(s) for 1 day. 04/08 completed Not Available Not Available Not Available acetaminoph en 300 mg-codeine 30 mg tablet 04/17 completed Not Available Not Available Not Available sulfamethox azole 800 mg-trimetho prim 160 mg tablet Take 1 tablet twice a day by oral route for 10 days. 02/17 completed Not Available Not Available Not Available lamotrigine 25 mg tablet 02/17 completed Not Available Not Available Not Available Macrobid 100 mg capsule Take 1 capsule every 12 hours by oral route for 7 days. 2024 active Not Available Not Available Not Avai lable cyproheptad ine 4 mg tablet Take 1 tablet everyday at bedtime. 11/10 completed Not Available Not Available Not Available famotidine 20 mg tablet TAKE 1 TABLET BY MOUTH TWICE DAILY 01/26 completed Not Available Not Available Not Available estradiol 1 mg tablet Take 1 tablet every day by oral route for 10 days. 02/17 completed Not Available Not Available Not Available cephalexin 500 mg capsule TAKE 1 CAPSULE BY MOUTH EVERY 6 HOURS FOR 7 DAYS 07/29 completed Not Available Not Available Not Available nitrofurant oin macrocrysta l 100 mg capsule 11/10 completed Not Available Not Available Not Available triamcinolo ne acetonide 0.1 % topical ointment APPLY A THIN LAYER TO THE AFFECTED AREA(S) BY TOPICAL ROUTE 2 TIMES PER DAY for up to 2 weeks. 12/28 completed Not Available Not Available Not Available sertraline 25 mg tablet Take 1 tablet every day. 11/10 completed Not Available Not Available Not Available amoxicillin 250 mg capsule 04/17 completed Not Available Not Available Not Available mupirocin 2 % topical ointment APPLY OINTMENT TOPICALLY TWICE DAILY FOR 14 DAYS 07/29 completed Not Available Not Available Not Available ibuprofen 600 mg tablet Take 600 mg by oral route. 01/26 completed Not Available Not Available Not Available ondansetron 4 mg disintegrat ing tablet DISSOLVE 2 TABLETS IN MOUTH TWICE DAILY NEEDED 08/07 completed Not Available Not Available Not Available Dermoplast (with menthol) 20 %-0.5 % topical aerosol Apply 1 {spray} by topical route. 08/07 completed Not Available Not Available Not Available amoxicillin 875 mg-potassiu m clavulanate 125 mg tablet TAKE 1 TABLET BY MOUTH EVERY 12 HOURS FOR 10 DAYS 08/20 completed Not Available Not Available Not Available azithromyci n 500 mg tablet Take 2 tablets every day by oral route for 1 day. 04/22 completed Not Available Not Available Not Available Mononessa (28) 0.25 mg-35 mcg tablet Take 1 tablet every day by oral route as directed. 12/28 completed Not Available Not Available Not Available Tri-Sprinte c (28) 0.18 mg(7)/0.215 mg(7)/0.25 mg(7)-0.035 mg tablet TAKE 1 TABLET BY MOUTH ONCE DAILY 12/06 completed Not Available Not Available Not Available chlorhexidi ne gluconate 0.12 % mouthwash RINSE MOUTH WITH 15 ML TWICE DAILY FOR 30 SECONDS AND SPIT. AVOID RINSING OR EATING FOR 30 MINUTES. active Not Available Not Available No t Available 10/09 completed Not Available Not Available Not Available Nexplanon 68 mg subdermal implant Inject 1 implant as needed by subcutane ous route as directed. 07/13 completed Not Available Not Available Not Available Crissy 24 Fe 1 mg-20 mcg (24)/75 mg (4) tablet TAKE 1 TABLET BY MOUTH ONCE DAILY 04/10 completed Not Available Not Available Not Available My Choice 1.5 mg tablet TAKE 1 TABLET BY MOUTH ONCE DAILY FOR 1 DOSE 01/26 completed Not Available Not Available Not Available EluRyng 0.12 mg-0.015 mg/24 hr vaginal ring INSERT 1 RING INTO VAGINA ONCE EVERY MONTH 12/15 completed Not Available Not Available Not Available Zafemy 150 mcg-35 mcg/24 hr transdermal patch APPLY ONE PATCH TO THE SKIN EVERY WEEK DIRECTED active Not Available Not Available No t Available Vitals Date Recorded Body height Body mass index (BMI) [Percentile] Per age and sex Body mass index (BMI) Body weight Systolic And Diastolic Provider Name and Address Organization Details Last Updated DateTime 10/15/2022 167.64 cm 95 % 32.4 kg/m2 61501.0 7 g 121/79 mm[Hg] Sivan Shrestha [facility] 3 16:03:53 Date Recorded Body height Body mass index (BMI) Body weight Systolic And Diastolic Provider Name and Address Organization Details Last Updated DateTime 12/17/2024 167.64 cm 37.1 kg/m2 593750.68 g 138/88 mm[Hg] Sivan Shrestha [facility] 12/17/2024 11:49:15 Date Recorded Body height Body mass index (BMI) [Percentile] Per age and sex Body mass index (BMI) Body weight Systolic And Diastolic Provider Name and Address Organization Details Last Updated DateTime 01/02/2023 167.64 cm 96 % 33.9 kg/m2 14011.6 9 g 109/71 mm[Hg] Sivan Shrestha [facility] 3 16:49:44 Date Recorded Body height Body mass index (BMI) Body weight Systolic And Diastolic Provider Name and Address Organization Details Last Updated DateTime 01/27/2024 167.64 cm 37.3 kg/m2 576384.27 g 115/80 mm[Hg] RICHARD Sullivan [place] 01/27/2024 11:16:07 Date Recorded Body height Body mass index (BMI) Body weight Systolic And Diastolic Provider Name and Address Organization Details Last Updated DateTime 03/28/2025 167.64 cm 37.1 kg/m2 969194.68 g 121/83 mm[Hg] Sivan Shrestha RICHARD [facility] 03/28/2025 14:17:29 Social History Question Answer Notes LastModified by Organizat ion Details LastModified Time Tobacco Smoking Status Former Smoker RICHARD Sullivan nancy, [place] - [place] 10/09/2021 15:14:12 Animal Exposure? Yes 2 Dogs 1 Cat Inform ation not available 09/19/2015 Do You Wear A Helmet When Biking? Yes Information not available 09/19/2015 What Is Your Level Of Caffeine Consumption? Occasional [email or web address] Information not available 11/11/2019 What Type Of Director Strategy Do You Use? None Information not available 09/19/2015 In The 14 Days Before Symptom Onset, Have You Had Close Contact With A Laboratory-confi rmed COVID-19 While That Case Was Ill? No Information not available 08/06/2021 In The 14 Days Before Symptom Onset, Have You Had Close Contact With A Person Who Is Under Investigation For COVID-19 While That Person Was Ill? No Information not available 08/06/2021 Have You Been To An Area Known To Be High Risk For COVID-19? No Information not available 08/06/2021 What Type Of Diet Are You Following? REGULAR Picky Information not available 09/19/2015 Which Illicit Or Recreational Drugs Have You Used? Marijuana Information not available 10/09/2021 Have There Been Any Changes To Your Family Or Social Situation? No Information not available 09/19/2015 What Is Your Home Situation? Both Parents Mom Dad Information not available 09/19/2015 Do You Use Insect Repellent Routinely? Yes Information not available 09/19/2015 Car Seat Type Or Seat Belt? Seat Belt Information not available 09/19/2015 Parent Involvement? Both Parents Involved Information not available 09/19/2015 Riding In Car Front Seat? Yes Sometimes Information not available 09/19/2015 What Was The Date Of Your Most Recent Tobacco Screening? 12/17/2024 Information not available 12/17/2024 How Many Children Do You Have? 3 Information not available 01/27/2024 What Is Your Parents' Marital Status? Information not available 09/19/2015 Pool Exposure No Information not available 09/19/2015 Do You Use Protection During Sex? No Information not available 01/16/2022 What Is The Name Of Your School? [phone] Information not available 02/17/2019 Are You Sexually Active? Yes [email or web address] Information not available 12/21/2020 Do You Have Any Siblings? 2 Brothers Information not available 09/19/2015 Do You Have Smoke And Carbon Monoxide Detectors In Your Home? Yes Information not available 09/19/2015 Are You Passively Exposed To Smoke? Yes Parents Vape In Bedroom Information not available 09/19/2015 What Types Of Sporting Activities Do You Participate In? None Information not available 09/19/2015 Do You Use Sunscreen Routinely? Yes Information not available 09/19/2015 Has Tobacco Cessation Counseling Been Provided? Yes Information not available 01/27/2024 On What Date Was Tobacco Cessation Counseling Provided? 12/17/2024 Information not available 12/17/2024 Year In School 12 Informatio n not available 02/17/2019 How Many Years Have You Used E-cigarettes Or Vape? 7 Information not available 12/17/2024 Sex: Female Functional Status Question Answer Note LastModified by Organizat ion Details LastModified Time Do you use any illicit or recreational drugs? Yes Information not available 10/09/2021 Do you or have you ever used any other forms of tobacco or nicotine? Yes [email or web address] Information not available 12/21/2020 What is your level of alcohol consumption? None [email or web address] Information not available 12/21/2020 Do you or have you ever used smokeless tobacco? Never used smokeless tobacco [email or web address] Information not available 11/11/2019 Do you or have you ever used e-cigarettes or vape? Current user of electronic cigarettes 5% ag Information not available 01/16/2022 What is your exercise level? Occasional Information not available 09/19/2015 Mental Status Question Answer Note LastModified by Organization D etails LastModified Time Are you or have you been involved with bullying? No Information not available 09/19/2015 Family History Relationship Description Onset Age of this Age Resolved Age Notes LastModified by Organization Details LastModified Time Unspecified Relation Diabetes mellitus on dads side [email or web address] Not available 04/01/2016 16:14:31 Medical History Condition Response Other N High Blood Pressure N Blood Diseases N Breast Cancer N Lung Disease N Depression N Blood Clots N Developmental or Behavioral Disorders N Breast Problem N Premature N Anesthesia Complications N Headaches/Migraines N Anxiety Disorder N Muscle, Joint, or Bone Problems N Vision or Eye Problems N Head Injury/Concussion N Infertility N Polyps N Acid Reflux (GERD) N Cancer N ADHD N Endometriosis N Bladder or Kidney Problems N High Cholesterol N Liver Disease N Headaches N Ear or Hearing Problems N Thyroid Problems N Kidney or Bladder Problems N GI Problems N Acne N Eating Disorder N Skin Problems N Anemia N Constipation N Diabetes N Ovarian Cancer N Bedwetting N Blood Transfusions N Heart Problems/Murmur N Seizures/Epilepsy N Abuse/Domestic Violence N Asthma N Allergies N Hepatitis N Heart Disease N Pre-Eclampsia N Chicken Pox N Autism Spectrum Disorder (ASD) N Osteoporosis N Gynecological History Statement/Question Response Abnormal Pap N Flow Moderate On BCP's at Conception? Y STIs/STDs Y HPV Vaccine Y Duration of Flow (days) 8 Age at Menarche 13 Current Control Method None Frequency of Cycle (Q days) 28 Sexually Active? Y Menses Monthly Y Date of Last Pap Smear 01/27/2024 Sexual Problems? N LMP Approximate Desired Control Method Sterilizati on Obstetrics History GPAL:G 3 P 3 0 0 3 Type Value Full Term 3 Living 3 Total 3 Immunizations Vaccine Type Date Status Note Provider Name and Address Organization Details Recorded Time Influenza, split virus, quadrivalent, PF 04/15/20 14 completed Not Available [facility] 08/07/2022 06:47:28 Influenza, live, trivalent, intranasal, PF 05/07/20 11 completed Not Available [facility] 08/07/2022 06:47:28 Influenza, split virus, quadrivalent, PF 04/15/20 13 completed Not Available [facility] 08/07/2022 06:47:28 influenza, split (incl. purified surface antigen) 04/11/20 10 completed Not Available [facility] 08/07/2022 06:47:28 meningococcal MCV4P 01/22/20 13 completed Not Available [facility] 08/07/2022 06:47:28 meningococcal MCV4P 04/17/20 18 completed Not Available [facility] 07/17/2019 02:36:30 meningococcal B, OMV 08/24/19 19 completed Not Available [facility] 07/17/2019 02:37:02 meningococcal B, OMV 09/24/19 19 completed Not Available [facility] 07/17/2019 02:37:02 IPV 05/24/20 02 completed Not Available [facility] 08/07/2022 06:47:28 IPV 03/23/20 02 completed Not Available [facility] 08/07/2022 06:47:28 influenza, unspecified formulation 05/16/20 10 completed Not Available [facility] 08/07/2022 06:47:28 Hib, unspecified formulation 07/23/19 03 completed Not Available [facility] 08/07/2022 06:47:28 MMR 01/29/20 03 completed Not Available [facility] 08/07/2022 06:47:28 influenza, unspecified formulation 04/26/20 03 completed Not Available [facility] 08/07/2022 06:47:28 DTaP 07/23/19 03 completed Not Available [facility] 08/07/2022 06:47:28 DTaP 05/24/20 02 completed Not Available [facility] 08/07/2022 06:47:28 influenza, unspecified formulation 05/30/20 03 completed Not Available [facility] 08/07/2022 06:47:28 pneumococcal conjugate PCV 7 05/24/20 02 completed Not Available [facility] 08/07/2022 06:47:28 HPV, quadrivalent 08/26/19 14 completed Not Available [facility] 08/07/2022 06:47:28 MMR 02/06/20 06 completed Not Available [facility] 08/07/2022 06:47:28 influenza, unspecified formulation 04/15/20 14 completed Not Available [facility] 01/02/2023 16:38:56 meningococcal MCV4, unspecified formulation 01/22/20 13 completed Not Available [facility] 01/02/2023 16:38:56 HPV, quadrivalent 01/22/20 13 completed Not Available [facility] 08/07/2022 06:47:28 influenza, unspecified formulation 04/11/20 10 completed Not Available [facility] 01/02/2023 16:38:56 influenza, unspecified formulation 04/15/20 13 completed Not Available [facility] 01/02/2023 16:38:56 Hep A, ped/adol, 2 dose 02/06/20 06 completed Not Available [facility] 08/07/2022 06:47:28 pneumococcal conjugate PCV 7 04/26/20 03 completed Not Available [facility] 08/07/2022 06:47:28 IPV 02/06/20 06 completed Not Available [facility] 08/07/2022 06:47:28 Hep B, adolescent or pediatric 01/18/20 02 completed Not Available [facility] 08/07/2022 06:47:28 influenza, unspecified formulation 05/07/20 11 completed Not Available [facility] 01/02/2023 16:38:56 DTaP 03/23/20 02 completed Not Available [facility] 08/07/2022 06:47:28 Hep B, adolescent or pediatric 07/23/19 03 completed Not Available [facility] 08/07/2022 06:47:28 influenza, unspecified formulation 04/06/20 12 completed Not Available [facility] 08/07/2022 06:47:28 pneumococcal conjugate PCV 7 03/23/20 02 completed Not Available [facility] 08/07/2022 06:47:28 Hib, unspecified formulation 05/24/20 02 completed Not Available [facility] 08/07/2022 06:47:28 DTaP 04/26/20 03 completed Not Available [facility] 08/07/2022 06:47:28 Tdap 04/06/20 12 completed Not Available [facility] 08/07/2022 06:47:28 Hep A, ped/adol, 2 dose 05/06/20 05 completed Not Available [facility] 08/07/2022 06:47:28 Hep B, adolescent or pediatric 03/23/20 02 completed Not Available [facility] 08/07/2022 06:47:28 HPV, quadrivalent 03/25/20 13 completed Not Available [facility] 08/07/2022 06:47:28 Hib, unspecified formulation 04/26/20 03 completed Not Available [facility] 08/07/2022 06:47:28 varicella 02/07/20 07 completed Not Available [facility] 08/07/2022 06:47:28 DTaP 02/06/20 06 completed Not Available [facility] 08/07/2022 06:47:28 IPV 01/29/20 03 completed Not Available [facility] 08/07/2022 06:47:28 varicella 04/26/20 03 completed Not Available [facility] 08/07/2022 06:47:28 influenza, unspecified formulation 05/06/20 05 completed Not Available [facility] 08/07/2022 06:47:28 Hib, unspecified formulation 03/23/20 02 completed Not Available [facility] 08/07/2022 06:47:28 Tdap 05/28/20 22 cancelled patient objection Sherman Florez MD Attn: Accounting,[address] [place] [address], [id number], [facility] 05/28/2022 16:38:04 Past Encounters Encounter ID Performer Location Encounter Start Date Encounter Closed Date Diagnosis/Indication Diagnosis SNOMED-CT Code Diagnosis ICD10 Code Diagnosis IMO Codes Diagnosis Note [id number] MD Verito Gu (Peds) [address] [place] [address] 09/19/2015 15:25:39 09/19/2015 17:53:16 Heartburn 40072397 R12 chew tums 4x daily, contact if not better to return. decline flue shot Obesity 848239946 E66.09 dental hygiene, see dentist q 6-12m.disc uss about low fat diet and exercise 1/2 - 1 hr/d, sleep 10 hr, good hand hygiene, no biting fingernail s, no weight gain, drink more water 4-6 cup/d, milk 2 cups/d, 5-2-1-0 message discussed [id number] MD Verito Layne (Peds) [address] [facility] [place] [address] 01/23/2016 15:47:38 01/23/2016 18:02:11 Well child 377781003 Z00.129 Discussed routine adolescent care discussed safety and school performanc e discussed healthy weight with diet and exercise Obesity 747514370 E66.09 weight reduction with diet and exercise. offered processing technologist but Gma wanted to check with mother. [id number] MD Verito Browne (Peds) [address] [facility] [place] [address] 03/25/2016 14:33:19 03/26/2016 11:30:53 Postconcussion syndrome 10636281 F07.81 Recommende d resting, gave note to take few days off from school. Once pt. returns to school, follow post-concu ssion protocol. F/u in 1 week for removal of sutures. To ER if develops any weakness, numbness. Take tylenol or motrin for headache. If no improvemen t within next couple of weeks, will refer to concussion clinic. [id number] MD Verito Browne (Peds) [address] [facility] [address] [place] [address] 04/01/2016 15:23:29 04/02/2016 14:17:33 Removal of suture 96231602 Z48.02 Removed 4 sutures from scalp. Postconcus mary syndrome 88866831 F07.81 Pt. says she has loss of smell and change in taste. Notify if theses sx. persist over next couple of weeks, will refer to neurology/ concussion clinic. [id number] MD Verito Browne (Peds) [address] [facility] [place] [address] 05/09/2016 15:07:11 05/09/2016 18:00:52 Acute bronchitis 07545632 J20.9 [id number] Norma Cho [facility] ([facility] 122) [address] [facility] [place] [address] 06/26/2016 10:25:42 06/26/2016 12:12:13 Contraception care 690199176 Z30.40 Venereal d isease screening 394783795 Z11.3 [id number] Norma Cho [facility] ([place] [address]) [address] [facility] [place] [address] 07/05/2016 15:36:11 07/08/2016 09:53:12 Contraception care management 527023812 Z30.9 [id number] [facility] [address] [facility] [place] [address] 12/03/2016 11:43:10 12/13/2016 10:45:54 Pain in throat 952136726 R07.0 Rapid strep negative, will send for throat cultre. If cx. positive, will start on abx. Adjustment disorder with depressed mood 50000647 F43.21 Pt. scored 9 on screen. Pt. admits to feeling depressed, but no suicidal ideation. Recommend counseling . Postconcus mary syndrome 85043598 F07.81 Pt. says she has loss of smell and change in taste that has still persisted 1 year after concussion . Pt. has been referred to concussion clinic, but has had no recent f/u. Recommende d making appt. with them. [id number] Norma Cho [facility] ([place] [address]) [address] [facility] [place] [address] 02/04/2017 13:46:59 02/10/2017 16:52:16 Irregular periods 32500509 N92.6 [id number] [facility] [address]) [address] [facility] [place] [address] 06/26/2017 14:00:19 06/26/2017 16:00:44 Contraception care management 076494472 Z30.9 [id number] MD Loreta Brownehalto (Peds) [address] [place] [address] 11/17/2017 16:15:49 11/18/2017 12:09:07 Jaw pain 725478882 R68.84 Appears to be non-specif ic. Recommend ibuprofen q 6-8 hours prn. Increased body mass index 83099336 E66.9 BMI decreased from 40.2 to 36. Congratula angela pt. on her weight loss. Pt. eating more healthy and going to the gym. Pt. lost 25 lbs since last office visit. 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 [id number] MD Verito Foster (Peds) [address] [facility] [place] [address] 04/17/2018 12:14:08 04/21/2018 18:26:31 Acute urinary tract infection 779389949 N39.0 Candidiasis of vagina 72 523599 B37.3 Active or passive immunization 957629493 Z23 [id number] JOEY Lagos [address] 14 OB [address] [facility] [place] [address] 07/24/2018 15:54:16 07/27/2018 08:56:19 Venereal disease screening 433456640 Z11.3 Possible 21013 4004 Z32.00 [id number] JOEY Lagos 14 OB [address] [facility] [place] [address] 07/29/2018 09:41:42 07/29/2018 16:56:58 Chlamydial infection 250576706 A74.9 [id number] MD Verito Browne (Peds) [address] [facility] [place] [address] 08/24/2018 15:57:40 08/25/2018 12:20:18 Adjustment disorder with depressed mood 29240139 F43.21 Pt. scored 14 on PHQ-9 screen today. Pt. admits to feeling depressed, but no current suicidal ideation. Pt. has alot of stressors in personal life. Recommende d counseling , informatio n for [place] given and [facility] line number given. F/u 16 well visit. Active or passive immunization 607193079 Z23 [id number] JOEY Lagos 14 OB [address] [facility] [place] [address] 09/01/2018 11:40:48 09/01/2018 13:40:59 Contraception care 217159529 Z30.40 [id number] [facility] [address] [place] [address] 09/07/2018 15:30:10 09/08/2018 15:56:04 Well child 072609441 Z00.129 Shots UTD, mom declined flu shot. Obesity 585824387 E66.9 BMI at 98%, 35.4. Reviewed 5-2-1-0 message. Screening labs ordered. f/u in 3 months. Adjustment disorder with depressed mood 04900595 F43.21 Pt. scored 14 on PHQ-9 screen on 08/24/18. Pt. admits to feeling depressed, but no current suicidal ideation. Pt. has alot of stressors in personal life. Recommende d counseling . CARES line number given. [id number] MD Verito Browne (Peds) [address] [place] [address] 09/23/2018 16:13:32 09/24/2018 10:07:09 Active or passive immunization 359054047 Z23 [id number] MD Verito Browne (Peds) [address] [facility] [place] [address] 10/20/2018 11:53:24 10/21/2018 11:38:16 Depressive disorder 26120179 F32.9 Pt. scored 18 on PHQ-9 screen today. Pt. was resistant to starting on an anti-depre ssant on last visit, but open to starting it now. Will start on Zoloft 25 mg. Pt. or parent to give phone update in 1 week. If pt. tolerating without any side-effec ts will increase to 50 mg. Pt. has appt. for counseling at [place]. Pt. is unsure if she has an appointmen t to see a psychiatri st. Will place referral to see psychiatri st. F/u in office in 2 weeks. Pt. has [facility] line number. [id number] MD Verito Browne (Peds) [address] [place] [address] 10/27/2018 11:08:02 10/27/2018 15:47:52 Acute urinary tract infection 292801413 N39.0 Urine dip appears suspicious for UTI, will start on po abx. Will await urine culture results to make any adjustment s. Venereal d isease screening 868994854 Z11.3 Pt. is sexually active, having lower abd. pain. Urine test negative. Will check for GC. Comprehens pee STD testing done 06/2018. Depressive disorder 3548 9007 F32.9 Pt. scored 18 on PHQ-9 screen on last visit. Pt. was resistant to starting on an anti-depre ssant, but on last visit agreed to start on Zoloft 25 mg. Pt. reports that she took medication only for 3 days due to feeling sick after taking including vomitting and diarrhea. Pt not interested in starting another anti-depre ssant at this time. Pt. has appt. for counseling at [place]. Pt. has an appointmen t to see psychiatri st on 01/21/19. Pt. denies having any suicidal ideation. F/u in office in 4 weeks. Pt. has [facility] line number. [id number] [facility] [address] [place] [address] 11/17/2018 13:35:11 11/18/2018 13:36:37 Bite of bed bug 974205417 W57.XXXA Ddx includes other insect bite. Samples of zyrtec given. Topical steroid prescibed. F/u in 1 week if no improvemen t. [id number] [facility] [address] [facility] [address] [place] [address] 12/28/2018 16:14:53 12/29/2018 09:36:29 High risk sexual behavior 161130604 Z72.51 1. STD testing done per pt request 2. Educated pt on STD prevention , Condom use 3. Pt verbalized understand ing 4. Will follow up pending lab results, as needed or at next annual Irregular periods 477583 07 N92.6 Pt encouraged to keep period tracker for next several months. Educated on things that can cause cycle to become irregular including but not limited to stress, exercise, weight loss, weight gain, major life changes etc. Pt verbalized understand ing. Will follow up in 3 months to discuss if meds are helping and if to continue on ocp therapy. [id number] MD Verito Browne (Peds) [address] [place] [address] 02/15/2019 09:29:29 02/16/2019 10:12:13 Tuberculosis screening 779428103 Z11.1 [id number] MD Verito Foster (Peds) [address] [place] [address] 02/17/2019 09:57:39 02/18/2019 11:50:13 Strain of abdominal muscle 562349571 S39.011A left flank. Less likely UTI or STD. u/a +/- confounded by period. Will await cx results. [id number] Norma Cho [facility] 14 OB [address] [facility] [address] [place] [address] 02/22/2019 09:44:33 02/23/2019 08:51:21 Removal of subcutaneous contraceptive done [id number] 24485 Z30.46 1. Reviewed all forms of control with patient including risk factors and side effects. 2. Counseled on STD transmissi on and prevention , condom use and prevention . 3. Pt would like to start with control patch. Educated on correct use and side effects. Will send rx to pharmacy. 4. Follow up for med check in 3 months or sooner if needed. [facility] ion care management 823112680 Z30.9 [id number] MD Verito Browne (Peds) [address] [place] [address] 07/13/2019 11:38:46 07/14/2019 10:26:21 Chronic abdominal pain 435752149 R10.9 Pt. has had abdominal pain since 01/2019. Pt. has had 70 lb. wt. loss over last 2 years, with 11 lb. wt. loss since 02/15/19. Pt. says she lost most of the weight using a ketogenic diet. She was noted to have ketones in urine today. Ddx. includes IBS, IBD, functional abdominal pain. Will order screening labs and abdominal and pelvic u/s. Increased body mass index 81304570 E66.9 BMI decreased from 30.7 to 28.9 (94%) since 02/17/19. Pt. has lost a significan t amt. of weight through the ketogenic diet. Large amt. of ketones seen in urine today. No glucose in urine. Will check screening labs. Dysuria 02351136 R30.9 Urine dip showed large ketones. Will send urine culture. Pt. is sexually active, will check for STDs. Diet education 31147916 Z71.3 Reviewed healthy eating habits including eating fruits, vegetables , drinking water. Exercises education, guidance, and counseling 772053580 Z71.82 Depressive disorder 4261 9000 F32.9 Pt. scored 18 on PHQ-9 screen on 10/20/18. Pt. was started on Zoloft 25 mg at that time, but took medication only for 3 days due to feeling sick after taking including vomitting and diarrhea. Pt was not interested in starting another anti-depre ssant. Pt. receives counseling at [place]. Pt. was referred to psychiatry , but pt. never went to see. Pt. currently denies feeling depressed or having any suicidal ideation.P t. has [facility] line number. [id number] JOEY Lagos 14 OB [address] [facility] [place] [address] 11/11/2019 09:35:22 11/12/2019 06:50:29 test positive 479182196 Z32.01 [id number] MD Chika Locke 14 OB [address] [facility] [place] [address] 12/09/2019 09:55:44 12/10/2019 13:26:49 Normal [id number] Z34.90 [id number] MD Chika Locke 14 OB [address] [facility] [place] [address] 01/10/2020 12:08:57 01/11/2020 11:43:03 Normal 98227105 Z34.90 [id number] JOEY Lagos 14 OB [address] [facility] [place] [address] 02/15/2020 17:05:03 02/17/2020 09:43:45 Routine care 409258268 Z34.02 [id number] JOEY Lagos 14 OB [address] [facility] [place] [address] 02/29/2020 11:30:01 03/01/2020 10:27:28 Routine care 898142988 Z34.02 [id number] MD Chika Locke 14 OB [address] [facility] [place] [address] 03/28/2020 11:03:07 03/29/2020 12:30:51 Routine care 835851634 Z34.93 Uterine si ze for dates discrepancy 623125929 O26.849 Normal 8572192 2 Z34.90 [id number] MD Chika Locke 14 OB [address] [facility] [place] [address] 04/11/2020 10:54:59 04/12/2020 13:33:42 Routine care 509934910 Z34.93 Normal 7448532 2 Z34.90 [id number] MD Chika Locke 14 OB [address] [facility] [place] [address] 04/25/2020 11:24:00 04/26/2020 20:53:43 Routine care 183943899 Z34.93 Normal [id number] 2 Z34.90 [id number] MD Chika Locke 14 OB [address] [facility] [place] [address] 05/02/2020 11:03:12 05/03/2020 14:41:59 Normal 97073457 Z34.90 [id number] MD Chika Locke 14 OB [address] [facility] [place] [address] 05/12/2020 11:44:04 05/15/2020 14:51:49 Normal [id number] Z34.90 [id number] MD Chika Locke 14 OB [address] [facility] [place] [address] 05/18/2020 10:39:43 05/19/2020 16:12:57 Normal 99348225 Z34.90 [id number] MD Chika Locke 14 OB [address] [facility] [place] [address] 06/01/2020 16:08:34 06/02/2020 13:31:01 care [id number] Z39.2 depression 58 [id number] F53.0 [id number] Sherman Florez MD [address] [place] [address] 07/10/2020 15:19:18 07/11/2020 13:45:40 care [id number] Z39.2 Contracept ion care management [id number] Z30.9 [id number] JOEY Lagos [address] [place] [address] [place] [address] 09/12/2020 15:37:58 09/13/2020 12:42:02 Contraception care management 616949296 Z30.9 1. Reviewed all forms of control with patient including risk factors and side effects. 2. Counseled on STD transmissi on and prevention , condom use and prevention . 3. Pt would like to continue with OCP. Educated on correct use and side effects. Will send rx to pharmacy. 4. Follow up for med check in 12 months, sooner if needed. [id number] JOEY Lagos [address] [place] [address] [place] [address] 11/14/2020 14:05:13 11/15/2020 11:34:35 Vaginal discharge 245152532 N89.8 Nuswab done and sent to lab. Counseled on STD prevention and condom use. Counseled on yeast and BV prevention . Will follow up pending lab results. [id number] JOEY Lagos [address] [place] [address] 12/06/2020 16:58:10 12/07/2020 15:33:59 Missed period 80196439 N92.5 Pt urine preg test positive. Pt given info on [facility] agencies and [facility] . Pt states she will come back in 4 weeks or call if she terminates . Pt advised to take daily vits and pt vu. [id number] JOEY Lagos [address] [place] [address] 12/21/2020 10:21:50 12/22/2020 07:22:45 Counseling for termination of done [id number] 9101 Z33.2 [id number] Norma Mac [facility] Chika 14 OB [address] [facility] [place] [address] 12/27/2020 14:56:11 12/28/2020 07:14:31 Early stage of [id number] Z34.81 see ob episode [id number] Norma Mac [facility] Chika 14 OB 4 [facility] [place] [address] 02/07/2021 16:55:38 02/09/2021 17:09:14 Routine care 665642085 Z34.02 [id number] MD Chika [place] 14 OB [address] [facility] [place] [address] 04/05/2021 15:29:12 04/07/2021 14:07:52 Normal [id number] Z34.90 [id number] MD Chika [place] 14 OB [address] [facility] [place] [address] 05/07/2021 15:37:34 05/08/2021 06:44:41 Normal [id number] Z34.90 [id number] MD Chika [place] 14 OB [address] [facility] [place] [address] 05/22/2021 15:28:48 05/23/2021 08:18:42 Normal [id number] Z34.90 [id number] MD Chika [place] 14 OB 4 [facility] [place] [address] 06/19/2021 16:06:02 06/20/2021 07:32:31 Normal [id number] Z34.90 [id number] MD Chika [place] 14 OB 4 [facility] [place] [address] 07/03/2021 16:23:54 07/09/2021 06:39:52 Normal [id number] Z34.90 [id number] MD Chika [place] 14 OB 4 [facility] [place] [address] 07/09/2021 16:20:34 07/10/2021 03:31:17 Normal [id number] Z34.90 [id number] MD Chika [place] 14 OB 4 [facility] [place] [address] 07/17/2021 12:12:10 07/18/2021 07:29:01 Normal [id number] Z34.90 [id number] MD Chika [place] 14 OB [address] [facility] [place] [address] 08/06/2021 16:04:57 08/07/2021 05:56:23 care [id number] Z39.2 depression 58 240096 F53.0 [id number] MD Chika [place] 14 OB [address] [facility] [place] [address] 08/20/2021 15:06:54 08/21/2021 10:03:12 Low back pain 613373601 M54.50 [id number] MD Chika [place] 14 OB [address] [facility] [place] [address] 10/09/2021 15:03:49 10/10/2021 10:44:29 care [id number] Z39.2 [id number] MD Chika [place] 14 OB [address] [facility] [place] [address] 01/16/2022 12:05:24 2022 08:59:37 Normal [id number] Z34.90 Chlamydial infection 105 192726 A74.9 [id number] MD Chika Locke 14 OB [address] [facility] [place] [address] 02/07/2022 14:13:27 02/08/2022 10:55:15 Normal [id number] Z34.90 [id number] MD Chika [place] 14 OB [address] [facility] [place] [address]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 no complaint s. new ob folder given with ultrasound order. new ob labs drawn. reviewed covid precautions along with diet and nutrition education. [place] [employer] [place] rtc in 4 weeks, sooner if needed. Flowsheet Date 12/09/2019 Yi Score Blood Edema Fundus Height Fundus Units Glucose Ketones Leukocytes Nitrite Labor Signs Protein Cervic Dilation Cervic Effacement Cervic Station none Type Weight in lbs Pre/Post Dialysis Refused With clothes 164.717444228197 BP Diastolic BP Location Tested BP Systolic BP Type 62 106 sitting Fetus Heart Rate Present A 148 Present Fetus Movement Comments Teen . No interest in adoption.Urine for STD testing today.US in 2 weeks, return for apt. in 3 weeks Flowsheet Date 01/10/2020 Yi Score Blood Edema Fundus Height Fundus Units Glucose Ketones Leukocytes Nitrite Labor Signs Protein Cervic Dilation Cervic Effacement Cervic Station none 20 wks none neg Type Weight in lbs Pre/Post Dialysis Refused With clothes 167.657272501575 BP Diastolic BP Location Tested BP Systolic BP Type 76 124 sitting Fetus Heart Rate Present A 145 Present Fetus Movement A Yes Comments Doing well, boy on US, new E DC of 05/20 ( unsure LMP)will need f/u US for face shots Flowsheet Date 02/15/2020 Yi Score Blood Edema Fundus Height Fundus Units Glucose Ketones Leukocytes Nitrite Labor Signs Protein Cervic Dilation Cervic Effacement Cervic Station none 26 cm none Type Weight in lbs Pre/Post Dialysis Refused Weight 173.957769801366 BP Diastolic BP Location Tested BP Systolic BP Type 60 110 sitting Fetus Heart Rate Present A 145 Present Fetus Movement A Yes Comments doing well with no complaint s. given order for follow up ultrasound. rtc in 4 weeks, sooner if needed with florez. counseled on kick counts, covid prevention. Flowsheet Date 02/29/2020 Yi Score Blood Edema Fundus Height Fundus Units Glucose Ketones Leukocytes Nitrite Labor Signs Protein Cervic Dilation Cervic Effacement Cervic Station none 27 cm none Type Weight in lbs Pre/Post Dialysis Refused With clothes 177.921580242656 BP Diastolic BP Location Tested BP Systolic BP Type 68 124 sitting Fetus Heart Rate Present A 155 Present Fetus Movement A Yes Comments doing well. one hour glucose and 28 week labs done today. pt states she was seen at [facility] Friday night for contractions, given terbutaline and sent home. pt denies contractions since. verbalized pos movement. counseled on when to return to [facility], kick counts and covid prevention. rtc in 4 weeks, sooner if needed, with Blas. Flowsheet Date 03/28/2020 Yi Score Blood Edema Fundus Height Fundus Units Glucose Ketones Leukocytes Nitrite Labor Signs Protein Cervic Dilation Cervic Effacement Cervic Station none 28 cm none neg Type Weight in lbs Pre/Post Dialysis Refused With clothes 183.860464964058 BP Diastolic BP Location Tested BP Systolic BP Type Fetus Heart Rate Present A 143 Present Fetus Movement A Yes Comments No complaints, passed sugar testfundal height with some lag, will check growth US for size<datesGBS in 2 weeks Flowsheet Date 04/11/2020 Yi Score Blood Edema Fundus Height Fundus Units Glucose Ketones Leukocytes Nitrite Labor Signs Protein Cervic Dilation Cervic Effacement Cervic Station none 30 cm Type Weight in lbs Pre/Post Dialysis Refused With clothes 187.294875264554 BP Diastolic BP Location Tested BP Systolic BP Type 70 124 sitting Fetus Heart Rate Present A 145 Present Fetus Movement A Yes Comments Baby was 55 %ile on recent U S despite fundal laggood spirits, GBS done today, no big issueslabor precautions Flowsheet Date 04/25/2020 Yi Score Blood Edema Fundus Height Fundus Units Glucose Ketones Leukocytes Nitrite Labor Signs Protein Cervic Dilation Cervic Effacement Cervic Station none 33 cm none neg 0cm 70% -3 Type Weight in lbs Pre/Post Dialysis Refused With clothes 189.182882044875 BP Diastolic BP Location Tested BP Systolic BP Type 72 120 sitting Fetus Heart Rate Present A 143 Present Fetus Movement A Yes Comments doing well, first baby.cervi x check today shows thinning but still closedlabor precautions Flowsheet Date 05/02/2020 Yi Score Blood Edema Fundus Height Fundus Units Glucose Ketones Leukocytes Nitrite Labor Signs Protein Cervic Dilation Cervic Effacement Cervic Station none 34 cm none neg Type Weight in lbs Pre/Post Dialysis Refused With clothes 191.76276928536 BP Diastolic BP Location Tested BP Systolic BP Type 70 122 sitting Fetus Heart Rate Present A 145 Present Fetus Movement A Yes Comments doing well, a few mild ctxdi scussed labor precautionsgood spirits Flowsheet Date 05/12/2020 Yi Score Blood Edema Fundus Height Fundus Units Glucose Ketones Leukocytes Nitrite Labor Signs Protein Cervic Dilation Cervic Effacement Cervic Station 34 cm none neg 1cm 80% -3 Type Weight in lbs Pre/Post Dialysis Refused With clothes 192.928652072912 BP Diastolic BP Location Tested BP Systolic BP Type 76 130 sitting Fetus Heart Rate Present A 142 Present Fetus Movement A Yes Comments doing well, no big complaint s2 trips to L&D for ctxcervix 1-2 cm Flowsheet Date 05/18/2020 Yi Score Blood Edema Fundus Height Fundus Units Glucose Ketones Leukocytes Nitrite Labor Signs Protein Cervic Dilation Cervic Effacement Cervic Station none 34 cm none trace Type Weight in lbs Pre/Post Dialysis Refused With clothes 198.994336892317 BP Diastolic BP Location Tested BP Systolic BP Type 74 126 sitting Fetus Heart Rate Present A 145 Present Fetus Movement A Yes Comments About to hit due datediscuss ed pros and cons of induction vs going post dateswill plan post dates induction next week Menstrual History Last Menstrual Date Menses Monthly On Bcp Conception Prior Menses Frequency Hcg Plus Date Menarche Onset Age 0208/19/2019 Genetic Screening And Infection History Question Response Note Patient's Age Will Be 35 Yea rs Or Older At Estimated Date of Delivery false Thalassemia (Indian, Burkinan, Mediterranean, Or Background): MCV < 80 false Neural Tube Defect (Meningom yelocele, Spina Bifida, Or Anencephaly) false Congenital Heart Defect false Down Syndrome false Barber-Sachs (eg, Yarsanism, Cajun, Gu[place]ian-[place]) f alse Dagoberto Disease false Sickle Cell Disease Or Trait () false Hemophilia Or Other Blood Disorders false Muscular Dystrophy false Cystic Fibrosis false [place]'s Chorea false Mental Retardation/Autism false If Yes, Was Person Tested For Fragile X? false Other Inherited Genetic Or Chromosomal Disorder false Maternal Metabolic Disorder (eg, Type 1 Diabetes, PKU) false Patient Or Baby's Father Had A Child With Defects Not Listed Above false Recurrent Loss, Or A Stillbirth false Medications (including Suppl ements, Vitamins, Herbs, OTC Drugs), Illicit/Recreational Drugs, Alcohol true If Yes, Agent(s) And Strength/Dosage true prenatals and ondansetron Any Other Genetic History false Live With Someone With TB Or Exposed To TB false Patient Or Partner Has History Of Genital Herpes false Rash Or Viral Illness Since Last Menstrual Perio d false History Of STD, Gonorrhea, C hlamydia, HPV, Syphilis true mom and dad chlamydia Other Infection History false History of HIV false History of Hepatitis false Prior GBS-infected child false Plans and Education First Trimester Discussed Date Discussion Item Discussion Note Discuss ed By 11/11/2019 Anticipated course of care 11/11/2019 Alcohol del11/11/2019 Intimate partner violence de [facility] 11/11/2019 Environmental/work hazards d el 11/11/2019 Screening for aneuploidy del dreds 11/11/2019 Nutrition counseling ; special diet; dietary precautions (mercury, listeriosis) del 11/11/2019 Childbirth classes/hospital facilities del 11/11/2019 HIV and other routine tests del 11/11/2019 Risk factors identif ied by history 11/11/2019 Weight gain counseling deldr 11/11/2019 Exercise del 11/11/2019 Teratogens del 11/11/2019 Use of any medicatio ns (including supplements, vitamins, herbs, or OTC drugs) del 11/11/2019 del 11/11/2019 Sexual activity del 11/11/2019 Tobacco/smoking cess ation counseling (ask, advise, assess, assist, and arrange) 11/11/2019 Illicit/recreational drugs d el 11/11/2019 Dental care 11/11/2019 Travel del 11/11/2019 Seat belt use deldreds 11/11/2019 [facility]/2019 Avoidance of saunas or hot tubs [facility] 11/11/2019 Toxoplasmosis precautions (cats/raw meat) [facility] Second Trimester Discussed Date Discussion Item Discussion Note Discuss ed By 11/11/2019 Selecting a care provider 11/11/[address]/tubal sterilization deldr 11/11/2019 Depression screening (when indicated) deldr 11/11/2019 Abnormal lab values [facility]dreds [facility] 11/11/2019 Signs and symptoms of [facility] 11/11/2019 [facility] [place] 11/11/2019 Tobacco/smoking cess ation counseling (ask, advise, assess, assist, and arrange) deldredsmith Third Trimester Discussed Date Discussion Item Discussion Note Discuss ed By Delivery Information Delivery Date Delivery Type Labor Anesthesia Weeks Gestation Incision Type Labor Labor Length Hrs Delivered By Post Complications Tubal Sterilization Discharge Date Comments 0 Induce d 40.2 false 05/24/2020 Discharge Information Feeding Method Contraceptive Method Maternal HG B and HCT Levels Bottle
== END 2025-04-25 13:20 | disposition home or self-care (01) ==
PROVIDERS: Emergency Provider Nurse Practitioner
DX: Z71.1 Person with feared health complaint in whom no diagnosis is made (principal)
CPT/HCPCS: 99213; G0463